=== PATIENT | female | born 1965 | race African-American/Black ===

== ENCOUNTER 2017-05-24 20:17 | Inpatient (IN) | payer BC ==
[2017-05-24] MEDS ORDERED: Morphine INJ* 4 MG/ML 1 ML SYRINGE IV ONE (22:38)
[2017-05-24] MEDS ORDERED: Ondansetron INJ* 2 MG/ML VIAL IV ONE (22:38)
[2017-05-24] MEDS ORDERED: NS 0.9% 1000 ML* 1,000 ML IV ONE (22:38)
[2017-05-24 23:45] LABS: Hematocrit 53 % (35-47); Hemoglobin 17.7 g/dl (12.0-16.0); Mean Corpuscular HGB Conc 33 g/dl (31-36); Mean Corpuscular Hemoglobin 30 pg (27-31); Mean Corpuscular Volume 90 fL (80-97); Mean Platelet Volume 10 um3 (7.4-10.4); Red Blood Count 5.93 10^6/ul (4.0-5.4); Red Cell Distribution Width 13 % (10.5-15); White Blood Count 8.6 10^3/ul (3.5-10.8)
[2017-05-24 23:55] LABS: Albumin 5.1 g/dL (3.2-5.2); BUN/Creatinine Ratio 8.6 (8-20); Calcium 10.8 mg/dL (8.6-10.3); EGFR African American 82.1 (>60); EGFR Non-African American 63.8 (>60); Globulin 3.9 g/dL (2-4); Total Bilirubin 0.8 mg/dL (0.2-1.0)
[2017-05-24 23:57] LABS: Troponin I 0.02 ng/mL (<0.04)
[2017-05-25] MEDS ORDERED: Insulin REGULAR(*) 1 UNITS UNIT IV PUSH ONE
[2017-05-25 00:38] LABS: PCO2 Arterial 17 mmHg (35-45)
[2017-05-25 00:40] LABS: Urine Bacteria Absent (Absent); Urine Bilirubin Negative (Negative); Urine Glucose 3+(>=500 mg/dL) (Negative); Urine Nitrite Negative (Negative)
[2017-05-25] MEDS ORDERED: KCL 20 MEQ/100 ML IVPREMIX* 20 MEQ/100 ML BAG IV ONE ×3 (00:53→05:21)
--- NOTE | 2017-05-25 00:57 | HP ---
H&P (Free Text) History and Physical: PCP: Jordan Mccray MD Date/Time of Evaluation: 05/25/2017 0025 CC: abdominal pain HPI: Mrs Mauricio is a 51YO female HX HTN (negative for DM) presents with onset of abdominal pain gradually worsening to severe Wednesday becoming associated with N/V Wednesday. She denies F/C, chest pain, radiation of pain, SOB, palpitations, light-headedness, cough, congestion, or changes in bowel/bladder. Last BM was Wednesday & described as normal. She claims normal urine output. She denies HX of similar. There was no black or bloody content to her emesis. She drinks minimal alcohol, last consumption ~2 weeks ago. 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; full code status FamHx: Mother passed in her 70s 2nd [place]. Father passed in his 50s 2nd gastric CA. Sister passed in her 40s 2nd breast CA. ROS: as above, otherwise reviewed and all were negative Constitutional: NAD, normally developed, morbidly obese black female vitals: Vital Signs Temp 35.9 C 05/24/17 20:34 Pulse 115 05/25/17 00:34 Resp 24 05/24/17 23:32 BP 151/122 05/25/17 00:34 Pulse Ox 98 05/25/17 00:34 Intake & Output 05/24/17 05/24/17 05/25/17 11:59 23:59 11:59 Intake Total 2 1500 Balance 2 1500 Weight 92.079 kg 92.079 kg Intake: IV Fluids 2 1500 Other: Date of Last Bowel 05/23/2017 Movement Estimated Stool Amount Medium HEENM: atraumatic; sclera/conjunctiva: non-icteric/mildly injected OU; hearing: clinically intact; oropharynx: clear, mucosa moist Neck: soft tissue: non-tender; thyroid: normal Pulmonary: diminished bilaterally, good to fair aeration, no accessory muscle use CV: TR/RR, normal S1S2, no carotid bruit, no jugular venous distention, 2+ B DP/ PT, no edema Abdominal: soft, non-distended, moderately diffusely tender increased to severe in the epigastrum & LUQ, no rebound/guarding/rigidity, hypoactive bowel sounds, no hepatosplenomegaly or masses, no costovertebral angle tenderness Musculoskeletal: general: grossly intact, no palpable tenderness Integumental: normal appearance and texture of exposed skin Psychiatric orientation: AA&O to PPS affect: pain mood: cooperative eye contact: good content: reliable responses: timely insight: fair Testing: Lab Results 05/24/17 05/24/17 05/24/17 Range/Units 23:06 23:06 23:06 WBC 8.6 (3.5-10.8) 10^3/ul RBC 5.93 H (4.0-5.4) 10^6/ul Hgb 17.7 H (12.0-16.0) g/dl Hct 53 H (35-47) % MCV 90 (80-97) fL MCH 30 (27-31) pg MCHC 33 (31-36) g/dl RDW 13 (10.5-15) % Plt Count 213 (150-450) 10^3/ul MPV 10 (7.4-10.4) um3 Neut % (Auto) 77.7 (38-83) % Lymph % (Auto) 13.8 L (25-47) % Hall % (Auto) 7.3 (1-9) % Eos % (Auto) 0.2 (0-6) % Baso % (Auto) 1.0 (0-2) % Absolute Neuts (auto) 6.7 (1.5-7.7) 10^3/ul Absolute Lymphs (auto) 1.2 (1.0-4.8) 10^3/ul Absolute Monos (auto) 0.6 (0-0.8) 10^3/ul Absolute Eos (auto) 0 (0-0.6) 10^3/ul Absolute Basos (auto) 0.1 (0-0.2) 10^3/ul Absolute Nucleated RBC 0.02 10^3/ul Nucleated RBC % 0.2 INR (Anticoag Therapy) 1.13 H (0.89-1.11) APTT 33.0 (26.0-36.3) seconds ABG pH (7.35-7.45) ABG pCO2 (35-45) mmHg ABG pO2 (80-100) mmHg ABG HCO3 (19-31) mmol/L ABG O2 Saturation (95-98) % ABG Base Excess (-2.0-2.0) VBG pH VBG pCO2 (41-51) mmHg VBG pO2 (35-45) mmHg VBG HCO3 (24-28) mmol/L VBG O2 Saturation (70-80) % VBG Base Excess (0-4) Sodium 129 L (133-145) mmol/L Potassium 3.0 L (3.5-5.0) mmol/L Chloride 95 L (101-111) mmol/L Carbon Dioxide 8 L* (22-32) mmol/L Anion Gap 26 H (2-11) mmol/L BUN 8 (6-24) mg/dL Creatinine 0.93 (0.51-0.95) mg/dL Est GFR ( Amer) 82.1 (>60) Est GFR (Non-Af Amer) 63.8 (>60) BUN/Creatinine Ratio 8.6 (8-20) Glucose 500 H (70-100) mg/dL Lactic Acid (0.5-2.0) mmol/L Calcium 10.8 H (8.6-10.3) mg/dL Total Bilirubin 0.80 (0.2-1.0) mg/dL AST 59 H (13-39) U/L ALT 92 H (7-52) U/L Alkaline Phosphatase 75 (34-104) U/L Troponin I 0.02 (<0.04) ng/mL C-Reactive Protein 23.71 H (< 5.00) mg/L Total Protein 9.0 H (6.4-8.9) g/dL Albumin 5.1 (3.2-5.2) g/dL Globulin 3.9 (2-4) g/dL Albumin/Globulin Ratio 1.3 (1-3) Lipase 2320 H (11.0-82.0) U/L Urine Color Urine Appearance Urine pH (5-9) Ur Specific [place] (1.010-1.030) Urine Protein (Negative) Urine Ketones (Negative) Urine Blood (Negative) Urine Nitrate (Negative) Urine Bilirubin (Negative) Urine Urobilinogen (Negative) Ur Leukocyte Esterase (Negative) Urine WBC (Auto) (Absent) Urine RBC (Auto) (Absent) Ur Squamous Epith Cells (Absent) Urine Bacteria (Absent) Hyaline Casts (Absent) Urine Glucose (Negative) 05/25/17 05/25/17 05/25/17 Range/Units 00:15 00:20 00:25 WBC (3.5-10.8) 10^3/ul RBC (4.0-5.4) 10^6/ul Hgb (12.0-16.0) g/dl Hct (35-47) % MCV (80-97) fL MCH (27-31) pg MCHC (31-36) g/dl RDW (10.5-15) % Plt Count (150-450) 10^3/ul MPV (7.4-10.4) um3 Neut % (Auto) (38-83) % Lymph % (Auto) (25-47) % Hall % (Auto) (1-9) % Eos % (Auto) (0-6) % Baso % (Auto) (0-2) % Absolute Neuts (auto) (1.5-7.7) 10^3/ul Absolute Lymphs (auto) (1.0-4.8) 10^3/ul Absolute Monos (auto) (0-0.8) 10^3/ul Absolute Eos (auto) (0-0.6) 10^3/ul Absolute Basos (auto) (0-0.2) 10^3/ul Absolute Nucleated RBC 10^3/ul Nucleated RBC % INR (Anticoag Therapy) (0.89-1.11) APTT (26.0-36.3) seconds ABG pH 7.15 L* (7.35-7.45) ABG pCO2 17 L* (35-45) mmHg ABG pO2 116 H (80-100) mmHg ABG HCO3 8.9 L* (19-31) mmol/L ABG O2 Saturation 98.7 H (95-98) % ABG Base Excess -20.5 L (-2.0-2.0) VBG pH VBG pCO2 (41-51) mmHg VBG pO2 (35-45) mmHg VBG HCO3 (24-28) mmol/L VBG O2 Saturation (70-80) % VBG Base Excess (0-4) Sodium (133-145) mmol/L Potassium (3.5-5.0) mmol/L Chloride (101-111) mmol/L Carbon Dioxide (22-32) mmol/L Anion Gap (2-11) mmol/L BUN (6-24) mg/dL Creatinine (0.51-0.95) mg/dL Est GFR ( Amer) (>60) Est GFR (Non-Af Amer) (>60) BUN/Creatinine Ratio (8-20) Glucose (70-100) mg/dL Lactic Acid 1.4 (0.5-2.0) mmol/L Calcium (8.6-10.3) mg/dL Total Bilirubin (0.2-1.0) mg/dL AST (13-39) U/L ALT (7-52) U/L Alkaline Phosphatase (34-104) U/L Troponin I (<0.04) ng/mL C-Reactive Protein (< 5.00) mg/L Total Protein (6.4-8.9) g/dL Albumin (3.2-5.2) g/dL Globulin (2-4) g/dL Albumin/Globulin Ratio (1-3) Lipase (11.0-82.0) U/L Urine Color Yellow Urine Appearance Clear Urine pH 5.0 (5-9) Ur Specific [place] 1.024 (1.010-1.030) Urine Protein 3+(>=500 mg/dl) H (Negative) Urine Ketones 2+ H (Negative) Urine Blood 1+ H (Negative) Urine Nitrate Negative (Negative) Urine Bilirubin Negative (Negative) Urine Urobilinogen Negative (Negative) Ur Leukocyte Esterase Negative (Negative) Urine WBC (Auto) Trace(0-5/hpf) (Absent) Urine RBC (Auto) 1+(3-5/hpf) H (Absent) Ur Squamous Epith Cells Present H (Absent) Urine Bacteria Absent (Absent) Hyaline Casts Present H (Absent) Urine Glucose 3+(>=500 mg/dl) H (Negative) 05/25/17 05/25/17 Range/Units 01:40 01:55 WBC (3.5-10.8) 10^3/ul RBC (4.0-5.4) 10^6/ul Hgb (12.0-16.0) g/dl Hct (35-47) % MCV (80-97) fL MCH (27-31) pg MCHC (31-36) g/dl RDW (10.5-15) % Plt Count (150-450) 10^3/ul MPV (7.4-10.4) um3 Neut % (Auto) (38-83) % Lymph % (Auto) (25-47) % Hall % (Auto) (1-9) % Eos % (Auto) (0-6) % Baso % (Auto) (0-2) % Absolute Neuts (auto) (1.5-7.7) 10^3/ul Absolute Lymphs (auto) (1.0-4.8) 10^3/ul Absolute Monos (auto) (0-0.8) 10^3/ul Absolute Eos (auto) (0-0.6) 10^3/ul Absolute Basos (auto) (0-0.2) 10^3/ul Absolute Nucleated RBC 10^3/ul Nucleated RBC % INR (Anticoag Therapy) (0.89-1.11) APTT (26.0-36.3) seconds ABG pH (7.35-7.45) ABG pCO2 (35-45) mmHg ABG pO2 (80-100) mmHg ABG HCO3 (19-31) mmol/L ABG O2 Saturation (95-98) % ABG Base Excess (-2.0-2.0) VBG pH Pending VBG pCO2 22 L (41-51) mmHg VBG pO2 76 H (35-45) mmHg VBG HCO3 9.8 L (24-28) mmol/L VBG O2 Saturation 96.3 H (70-80) % VBG Base Excess -19.2 L (0-4) Sodium (133-145) mmol/L Potassium (3.5-5.0) mmol/L Chloride (101-111) mmol/L Carbon Dioxide (22-32) mmol/L Anion Gap (2-11) mmol/L BUN (6-24) mg/dL Creatinine (0.51-0.95) mg/dL Est GFR ( Amer) (>60) Est GFR (Non-Af Amer) (>60) BUN/Creatinine Ratio (8-20) Glucose 429 H (70-100) mg/dL Lactic Acid (0.5-2.0) mmol/L Calcium (8.6-10.3) mg/dL Total Bilirubin (0.2-1.0) mg/dL AST (13-39) U/L ALT (7-52) U/L Alkaline Phosphatase (34-104) U/L Troponin I (<0.04) ng/mL C-Reactive Protein (< 5.00) mg/L Total Protein (6.4-8.9) g/dL Albumin (3.2-5.2) g/dL Globulin (2-4) g/dL Albumin/Globulin Ratio (1-3) Lipase (11.0-82.0) U/L Urine Color Urine Appearance Urine pH (5-9) Ur Specific [place] (1.010-1.030) Urine Protein (Negative) Urine Ketones (Negative) Urine Blood (Negative) Urine Nitrate (Negative) Urine Bilirubin (Negative) Urine Urobilinogen (Negative) Ur Leukocyte Esterase (Negative) Urine WBC (Auto) (Absent) Urine RBC (Auto) (Absent) Ur Squamous Epith Cells (Absent) Urine Bacteria (Absent) Hyaline Casts (Absent) Urine Glucose (Negative) ECG, personally reviewed: sinus tachycardia rate 115, ST depression V3-5 with T- wave inversions diffusely; negative for STEMI; prior ECG shows only T-wave inversions V4-6, I, & II/III/AVF CXR, personally reviewed: no acute process, negative for pleural effusions CT abd/pel W, personally reviewed: IMPRESSION: Multiple nodular masses in the uterine wall demonstrate peripheral enhancement and central attenuation. These likely reflect uterine fibroids; although the appearance is atypical. Correlation with history and pelvic exam is recommended. Pelvic ultrasound may be helpful for further evaluation. Impression: 51F presenting with acute pancreatitis & DKA w/o HX DM DIAGNOSIS & PLAN Primary severe acute pancreatitis : ICU monitoring : aggressive IVFs : pain control : strict NPO : will likely need enteral feeding tube placed via radiology : PICC consult : trend lipase : supportive care DKA : aggressive IVF resuscitation via 5L bolus : 10units regular insulin IV given in ED, start GTT : Q4H BMP & VBGs : Q1H glucometry : 2 runs 20mEq KCl now, add to IVFs once urine output established : check magnesium : add 5% dextrose to IVFs once serum glucose <250 severe dehydration 2nd above : elevated HGB/HCT uterine nodules : likely atypical appearing fibroids : outpatient work up via PCP Secondary HTN : hold anti-hypertensives for now, monitor Admission Rational: inpatient for acute pancreatititis not anticipated to resolve adequately within 48h to allow for discharge DVTp: heparin SQ & SCDs Code Status: full HCP: brother, Uday & sister, Jacquie
[2017-05-25] MEDS ORDERED: Iohexol 300* (CONTRAST) 10 ML SDV IV ONE (01:05)
[2017-05-25] MEDS ORDERED: Nicotine Inhaler* 10 MG AMP INH PRN (01:22)
[2017-05-25] MEDS: NS 0.9% 1000 ML* 2,000 ML IV ONE ×2 (01:22→02:13)
[2017-05-25] MEDS ORDERED: Albuterol 2.5 MG/3 ML NEB.SOL* (0.083%) INH PRN (01:22)
[2017-05-25] MEDS ORDERED: Acetaminophen SUPP* 650 MG SUPP PR PRN (01:26)
[2017-05-25] MEDS ORDERED: NS 0.9% 1000 ML* 1,000 ML IV SCH (01:30)
[2017-05-25] MEDS ORDERED: HYDROmorphone PCA* 20 MG/20 ML PCA.SYRING IVPB SCH (02:00)
[2017-05-25 02:02] LABS: C Reactive Protein 23.71 mg/L (< 5.00)
[2017-05-25] MEDS ORDERED: Mouth Piece, Nicotine* 1 EACH CARTRIDGE INH SCH (02:05)
[2017-05-25 02:10] LABS: Venous Bicarbonate HCO3 9.8 mmol/L (24-28)
[2017-05-25 03:28] LABS: Magnesium 1.9 mg/dL (1.9-2.7)
[2017-05-25] MEDS: NS 0.9% 1000 ML* 1,000 ML IV SCH ×2 (03:52→05:40)
[2017-05-25 04:13] LABS: Venous Bicarbonate HCO3 9.5 mmol/L (24-28)
[2017-05-25 04:38] LABS: BUN/Creatinine Ratio 9.6 (8-20); Blood Urea Nitrogen 7 mg/dL (6-24); Calcium 8.5 mg/dL (8.6-10.3); Chloride 104 mmol/L (101-111); EGFR African American 108.5 (>60); EGFR Non-African American 84.4 (>60); Glucose 274 mg/dL (70-100); Sodium 130 mmol/L (133-145)
[2017-05-25 04:48] LABS: Anion Gap 16 mmol/L (2-11); CO2 Carbon Dioxide 10 mmol/L (22-32)
[2017-05-25] MEDS ORDERED: Dextrose 50% Syringe 50 ML* 25 GM/50 ML SYRINGE IV PUSH ONE (05:00)
[2017-05-25] MEDS ORDERED: Dextrose 50% Syringe 50 ML* 25 GM/50 ML SYRINGE ONE (05:04)
[2017-05-25] MEDS: D5W NS 0.9% 40Meq KCL 1000 ML* 1,000 ML IV SCH ×2 (05:35→10:42)
--- NOTE | 2017-05-25 06:10 | ED ---
Kim Mann Rebecca, scribed for Isauro Ledezma on 05/24/17 at 2234 . Abdominal Pain/Female - HPI Summary HPI Summary: Pt is a 51 y/o F who presents to ED c/o diffuse abdominal pain. Sx began 3 nights ago and worsened yesterday. Pain is described as though it "feels like somebody is punching me." Additionally c/o N/V with episodes of emesis occurring every time she drinks. Denies diarrhea, fever, CP, SOB. Reports that she is not passing gas. PSHx on the abdomen consists of a multiple years ago. - History of Current Complaint Chief Complaint: EDAbdPain Stated Complaint: ABD PAIN Time Seen by Provider: 05/24/17 22:13 Hx Obtained From: Patient Onset/Duration: Lasting Days - 3 days, Still Present, Worse Since - yesterday Severity Currently: Severe Pain Intensity: 10 Pain Scale Used: 0-10 Numeric Location: Diffuse Character: Other: - "like somebody is punching me" Associated Signs and Symptoms: Positive: Nausea, Vomiting. Negative: Fever, Chest Pain, Diarrhea Allergies/Adverse Reactions: Allergies Allergy/AdvReac Type Severity Reaction Status Date / Time No Known Allergies Allergy Verified 05/24/17 20:33 PMH/Surg Hx/FS Hx/Imm Hx Endocrine/Hematology History: Reports: Hx Anemia Cardiovascular History: Reports: Hx Hypertension - Surgical History Surgery Procedure, Year, and Place: Rt shoulder sx, 2008. 2000 Hx Anesthesia Reactions: No Infectious Disease History: No Infectious Disease History: Denies: Traveled Outside the [place] in Last 30 Days - Family History Known Family History: Positive: Cardiac Disease, Diabetes - Social History Alcohol Use: Daily Alcohol Amount: "1 beer" Hx Substance Use: No Substance Use Type: Reports: None Hx Tobacco Use: Yes Smoking Status (MU): Light Every Day Tobacco Smoker Review of Systems Negative: Fever Negative: Chest Pain Negative: Shortness Of Breath Positive: Abdominal Pain - diffuse, Vomiting, Nausea. Negative: Diarrhea All Other Systems Reviewed And Are Negative: Yes Physical Exam - Summary Physical Exam Summary: Appearance: Well appearing, no pain distress Skin: warm, dry, reflects adequate perfusion Head/face: normal Eyes: EOMI, RANJAN ENT: normal Neck: supple, nontender Respiratory: CTA, breath sounds present Cardiovascular: RRR, pulses symmetrical Abdomen: diffuse abdominal tenderness, soft Bowel: present Musculoskeletal: normal, strength/ROM intact Neuro: normal, sensory motor intact, A&Ox3 Triage Information Reviewed: Yes Vital Signs On Initial Exam: Initial Vitals Temp Pulse Resp BP Pulse Ox 96.7 F 120 16 156/119 100 05/24/17 20:34 05/24/17 20:34 05/24/17 20:34 05/24/17 20:34 05/24/17 20:34 Vital Signs Reviewed: Yes Diagnostics - Vital Signs Vital Signs Temp Pulse Resp BP Pulse Ox 05/24/17 20:34 96.7 F 120 16 156/119 100 - Laboratory Result Diagrams: 05/24/17 23:06 05/24/17 23:06 Lab Statement: Any lab studies that have been ordered have been reviewed, and results considered in the medical decision making process. - Radiology CXR Xray Interpretation: No Acute Changes Radiology Interpretation Completed By: ED Physician - CT CT Abd/Pel CT Interpretation: Positive (See Comments) - Multiple nodular masses in the uterine wlal demonstrate peripheral enhancement and central low attenuation. These likely reflect uterine fibroids; although the appearance is atypical. Correlation with history and pelvic exam is recommended. Pelvis ultrasound may be helpful for further evaluation. CT Interpretation Completed By: Radiologist - Ultrasound No standard instances Ultrasound Interpretation: Positive (See Comments) - US Abdomen: Fatty liver. ED physician reviewed radiology report and agrees. Ultrasound Interpretation Completed By: Radiologist - EKG 2241 Cardiac Rate: Tachycardia - 115 bpm EKG Rhythm: Sinus Tachycardia ST Segment: Non-Specific - Non-specific ST changes Abdominal Pain Fem Course/Dx - Course Course Of Treatment: Pt is a 51 y/o F who presents to ED c/o diffuse abdominal pain. Sx began 3 nights ago and worsened yesterday. Pain is described as though it "feels like somebody is punching me." Additionally c/o N/V with episodes of emesis occurring every time she drinks. Denies diarrhea, fever, CP, SOB. Reports that she is not passing gas. PSHx on the abdomen consists of a C- Section multiple years ago. EKG is tachycardic with non-specific ST changes. CXR is negative, as read by ED physician. Abd US reveals fatty liver. CT Abd/ Pel reveals "Multiple nodular masses in the uterine wlal demonstrate peripheral enhancement and central low attenuation. These likely reflect uterine fibroids; although the appearance is atypical. Correlation with history and pelvic exam is recommended. Pelvis ultrasound may be helpful for further evaluation.". Lipase of 2320, potassium of 3.0, CO2 of 8L, ABG pH of 7.15 L, ABG pCO2 of 17L, ABG HCO3 of 8.9L, ABG O2 saturation of 98.7, ABG pO2 of 116 H, anion gap of 26 H. In the ED course, the pt was administered fluid, insulin, morphine, zofran, Zosyn and KCl. Discussed care of pt with Dr. Dangelo who accepts pt for admission. She will be admitted with Dx metabolic acidosis, DKA, pancreatitis, hypokalemia. She understands and agrees. Elevated BP noted and advised to f/u with PCP. - Diagnoses Provider Diagnoses: Metabolic acidosis, Pancreatitis, Hypokalemia, DKA (diabetic ketoacidoses) - Provider Notifications Discussed Care Of Patient With: Aba Dangelo Time Discussed With Above Provider: 00:51 Instructed by Provider To: Other - Accepts pt for admission. - Critical Care Time Critical Care Time: 30-74 min - 30 minutes Discharge - Discharge Plan Condition: Stable Disposition: ADMITTED TO [facility] The documentation as recorded by the Kim rangel Rebecca accurately reflects the service I personally performed and the decisions made by Brisa kenny Emmanuel.
[2017-05-25 06:34] LABS: Hematocrit 40 % (35-47); Hemoglobin 13.2 g/dl (12.0-16.0); Mean Corpuscular HGB Conc 33 g/dl (31-36); Mean Corpuscular Hemoglobin 29 pg (27-31); Mean Corpuscular Volume 88 fL (80-97); Mean Platelet Volume 10 um3 (7.4-10.4); Red Cell Distribution Width 13 % (10.5-15); White Blood Count 6.7 10^3/ul (3.5-10.8)
[2017-05-25 06:47] LABS: Albumin 3.4 g/dL (3.2-5.2); Direct Bilirubin 0.2 mg/dL (0.03-0.18); Globulin 2.6 g/dL (2-4); Indirect Bilirubin 0.3 mg/dL (0.3-1.0); Total Bilirubin 0.5 mg/dL (0.2-1.0)
[2017-05-25 07:18] LABS: HDL Cholesterol 23.1 mg/dL
--- NOTE | 2017-05-25 07:36 | RAD ---
INDICATION: Abdominal pain. COMPARISON: Comparison is made with a prior chest x-ray study from February 02, 2016. TECHNIQUE: A portable view of the chest was obtained. FINDINGS: Cardiac and mediastinal contours appear to be within normal limits. The lungs are clear. No pleural effusion is seen. No free intraperitoneal air is seen. Postsurgical changes are noted in the right shoulder. IMPRESSION: NO EVIDENCE FOR ACUTE DISEASE.
--- NOTE | 2017-05-25 07:43 | RAD ---
HISTORY: Cholecystitis, right upper quadrant pain COMPARISONS: CT dated May 25, 2017 TECHNIQUE: Multiple transverse and longitudinal ultrasound images were obtained of the right upper quadrant of the abdomen using grayscale and color Doppler imaging. FINDINGS: The study is limited by patient body habitus. LIVER: The liver is diffusely echogenic and coarse in echotexture, with decreased acoustic transmission. The liver is enlarged measuring 20 cm in long axis.. There is normal hepatopedal flow of the portal vein on Doppler imaging. BILIARY TREE: There is no intrahepatic or extrahepatic biliary dilatation. The common duct measures 0.3 cm. GALLBLADDER: The gallbladder is well-visualized. There is no cholelithiasis, gallbladder wall thickening, pericholecystic fluid, or sonographic Frazier sign. PANCREAS: The pancreas is obscured by overlying bowel gas. RIGHT KIDNEY: The right kidney is normal in shape, size, contour, and echogenicity. There is no hydronephrosis or nephrolithiasis. The right kidney measures 10.4 x 3.5 x 4.7 cm. AORTA AND IVC: The aorta and IVC are unremarkable. FLUID: There are no pleural effusions. There is no free fluid within the hepatorenal recess. OTHER FINDINGS: None. IMPRESSION: HEPATOMEGALY WITH FATTY INFILTRATION OF THE LIVER
--- NOTE | 2017-05-25 08:11 | RAD ---
INDICATION: Diverticulitis. COMPARISON: Correlation is made with a prior right upper quadrant ultrasound from May 24, 2017. TECHNIQUE: A CT scan of the abdomen and pelvis was performed with intravenous and oral contrast following intravenous injection of 89 ml of Omnipaque 300 nonionic contrast. Contiguous axial sections were obtained from the lung bases through the symphysis pubis. Images were reconstructed in the coronal and sagittal planes. FINDINGS: The lung bases are clear. No pleural effusion is present. The liver is moderately enlarged with decreased attenuation consistent with fatty infiltration. There is more focal decreased density anterior portion of the left hepatic lobe likely representing more focal fatty infiltration. There is some sparing in the anterior aspect of the right hepatic lobe. The spleen is normal in size without focal abnormality. No calcified gallstones are seen. The pancreas appears to be within normal limits. The kidneys and adrenal glands are normal in size. No hydronephrosis is seen. No significant focal renal abnormality is seen. The aorta is normal in caliber with mild calcific plaque present. No significant enlarged retroperitoneal lymph nodes are seen. The stomach, small and large bowel appear nondistended. The appendix is within normal limits. There is no evidence for diverticulitis or colitis. The uterus is enlarged with multiple hypodense peripherally enhancing nodules likely representing leiomyomas although the appearance is somewhat atypical. Recommend clinical correlation and a pelvic ultrasound for further evaluation. No free intraperitoneal air or fluid is seen. No significant focal osseous abnormality is seen. IMPRESSION: 1. NO EVIDENCE FOR ACUTE FINDING OR CAUSE FOR THE PATIENT'S ABDOMINAL PAIN IS SEEN. 2. HEPATOMEGALY AND FATTY INFILTRATION. 3. THE UTERUS IS ENLARGED WITH MULTIPLE HYPODENSE PERIPHERALLY ENHANCING LESIONS LIKELY REPRESENTING FIBROIDS ALTHOUGH ATYPICAL IN APPEARANCE. RECOMMEND CLINICAL CORRELATION AND CORRELATION WITH A PELVIC ULTRASOUND.
--- NOTE | 2017-05-25 08:29 | PN ---
Subjective Date of Service: 05/25/17 Interval History: Feels sleepy. When aroused feels pain is still 8/10, epigastric No nausea. Feels hungry Objective Active Medications: Acetaminophen (Tylenol Supp*) 650 mg [place] Q6H PRN PRN Reason: FEVER/PAIN Albuterol (Ventolin 2.5 Mg/3 Ml Neb.Brooke*) 2.5 mg INH Q2H PRN PRN Reason: SOB/WHEEZING Device (Nicotine Mouth Piece*) 1 each INH .CARTRIDGE JOSTIN Famotidine (Pepcid Iv*) 20 mg IV SLOW PU BID JOSTIN Heparin Sodium (Porcine) (Heparin Vial(*)) 5,000 units SUBCUT Q8HR JOSTIN Sodium Chloride (Ns 0.9% 1000 Ml*) 1,000 mls @ 100 mls/hr IV ED ONCE ONE Stop: 05/25/17 08:37 Last Admin: 05/24/17 23:32 Dose: 100 mls/hr Hydromorphone HCl (Dilaudid Funding Specialist*) 20 mg in 20 mls @ 0 mls/hr IVPB .change Q24H [facility]; As Directed PRN Reason: Protocol Last Admin: 05/25/17 03:42 Dose: 0.2 mls/hr Sodium Chloride (Ns 0.9% 1000 Ml*) 1,000 mls @ 0 mls/hr IV WIDE OPEN [facility] PRN Reason: Wide Open Stop: 05/26/17 01:31 Last Admin: 05/25/17 05:40 Dose: 999 mls/hr Potassium Chloride/Dextrose (D5w Ns 0.9% 40meq Kcl 1000 Ml*) 1,000 mls @ 200 mls/hr IV PER RATE [facility] Last Admin: 05/25/17 05:35 Dose: 200 mls/hr Insulin Human Regular 100 (units/ Sodium Chloride) 100 mls @ 5 mls/hr IV Q20H JOST[facility] PRN Reason: 5 UNITS/HR Last Admin: 05/25/17 06:25 Dose: 5 mls/hr Nicotine (Nicotine Inhaler*) 10 mg INH Q2H PRN PRN Reason: CRAVING Ondansetron HCl (Zofran Inj*) 4 mg IV Q6H PRN PRN Reason: NAUSEA Vital Signs 05/25/17 05/25/17 05/25/17 02:30 02:34 03:00 Temperature Pulse Rate 109 110 Respiratory 12 Rate Blood Pressure 147/101 145/104 (mmHg) O2 Sat by Pulse 100 99 Oximetry 05/25/17 05/25/17 05/25/17 03:23 03:42 03:45 Temperature 97.7 F Pulse Rate 116 111 Respiratory 22 16 Rate Blood Pressure 143/106 156/121 (mmHg) O2 Sat by Pulse 100 99 Oximetry 05/25/17 05/25/17 05/25/17 04:00 04:08 05:00 Temperature 98.2 F Pulse Rate 112 112 104 Respiratory 24 14 11 Rate Blood Pressure 139/108 139/100 124/90 (mmHg) O2 Sat by Pulse 99 99 98 Oximetry 05/25/17 05/25/17 05/25/17 06:00 07:00 07:36 Temperature Pulse Rate 101 103 104 Respiratory 13 11 15 Rate Blood Pressure 111/84 122/96 122/96 (mmHg) O2 Sat by Pulse 98 96 97 Oximetry 05/25/17 08:00 Temperature 97.4 F Pulse Rate 97 Respiratory 18 Rate Blood Pressure 127/81 (mmHg) O2 Sat by Pulse 94 Oximetry Oxygen Devices in Use Now: None Appearance: interactive, NAD Eyes: No Scleral Icterus, PERRLA, - - left eye exotropia Ears/Nose/Mouth/Throat: NL Teeth, Lips, Gums, Clear Oropharnyx, Mucous Membranes Moist Neck: NL Appearance and Movements; NL JVP, Trachea Midline, No Thyroid Enlargement, Masses Respiratory: Symmetrical Chest Expansion and Respiratory Effort, - - b/l end expiratory wheeze Cardiovascular: NL Sounds; No Murmurs; No JVD, RRR Abdominal: - - soft, mild distention, TTP throughout, no rebound/guarding, +bs Lymphatic: No Cervical Adenopathy Extremities: No Edema, No Clubbing, Cyanosis Skin: No Rash or Ulcers Neurological: Alert and Oriented x 3, - - cn2-12 intact, left eye exotropia Result Diagrams: 05/25/17 06:00 05/25/17 05:00 Microbiology and Other Data: Microbiology 05/25/17 02:00 Nasal Screen MRSA (PCR)(CHRISTOPHE) - Final Nasal Mrsa Negative Assess/Plan/Problems-Billing Assessment: 51 yo F p/w abdominal pain found with new dx DM, DKA (AG 26, pH 7.15) and pancreatitis - Patient Problems (1) Pancreatitis Comment: NPO until pain resolves Change PARAFFINER to PRN morphine and adjust as needed c/w D5 NS at 200 with 40KCl. Will adjust glucose and potassium content based on BMPs Gallbladder does not seem to be source. triglycerides wnl Denies EtOH (2) DKA (diabetic ketoacidoses) Comment: Suspect DKA in setting of pancreatitis and undiagnosed DM (HbA1c 12.8) Insulin gtt with D5 NS with 40 Kcl BMP q4hrs FSG q1hr Transition off of insulin gtt will require D5 as patient will remain NPO given pancreatitis (3) Hypertension Comment: hold home medications (4) Uterine fibroid Comment: Will need further evaluation as outpatient Incidental finding Referenced in discharge paperwork (5) Fatty liver Comment: Seen on US Would explain elevated transaminases (6) Tobacco abuse Comment: several cigarettes per day nicotine patch (7) DVT prophylaxis Comment: HSQ
[2017-05-25 08:48] LABS: Venous Bicarbonate HCO3 13.9 mmol/L (24-28)
[2017-05-25] MEDS: Famotidine IV* 10 MG/ML 2 ML (20 mg) IV SLOW PU SCH ×2 (09:27→22:11)
[2017-05-25 10:50] LABS: BUN/Creatinine Ratio 9.4 (8-20); Calcium 8.4 mg/dL (8.6-10.3); EGFR Non-African American 122.1 (>60); Potassium 3.2 mmol/L (3.5-5.0)
[2017-05-25] MEDS ORDERED: NS 0.9% IV SCH ×2 (11:40→15:19)
[2017-05-25] MEDS ORDERED: INSULIN REGULAR IV SCH ×2 (11:40→15:19)
[2017-05-25 12:23] LABS: Venous Bicarbonate HCO3 14.6 mmol/L (24-28)
[2017-05-25 12:53] LABS: BUN/Creatinine Ratio 10.2 (8-20); Calcium 8.5 mg/dL (8.6-10.3); EGFR African American 171.9 (>60); EGFR Non-African American 133.7 (>60); Potassium 3.2 mmol/L (3.5-5.0)
[2017-05-25] MEDS ORDERED: D5W NS 0.9% 40Meq KCL 1000 ML* 1,000 ML IV SCH (15:19)
[2017-05-25 16:53] LABS: Venous Bicarbonate HCO3 15.6 mmol/L (24-28)
[2017-05-25 17:09] LABS: BUN/Creatinine Ratio 8.3 (8-20); Calcium 8.4 mg/dL (8.6-10.3); EGFR African American 176.1 (>60); EGFR Non-African American 136.9 (>60); Potassium 3.4 mmol/L (3.5-5.0)
[2017-05-25] MEDS ORDERED: KCL 10 MEQ/50 ML IVPREMIX* 10 MEQ/50 ML BAG IV ONE (17:25)
[2017-05-25] MEDS ORDERED: Insulin GLARGINE(*) 1 UNITS UNIT SUBCUT SCH (18:00)
[2017-05-26] MEDS: NS 0.9% 1000 ML* 1,000 ML IV SCH ×3 (01:11→11:39)
[2017-05-26] MEDS: Morphine INJ* 4 MG/ML 1 ML SYRINGE IV PRN ×2 (02:28→09:09)
[2017-05-26] MEDS: Heparin VIAL(*) 5000 UNITS/ML VIAL (FIVE THOUSAND) SUBCUT SCH ×3 (06:10→22:32)
[2017-05-26] MEDS ORDERED: Dextrose 50% Syringe 50 ML* 25 GM/50 ML SYRINGE IV PUSH PRN (08:07)
--- NOTE | 2017-05-26 08:12 | PN ---
Subjective Date of Service: 05/26/17 Interval History: Feels abdominal pain is better but still 6/10 Nausea earlier no emesis Hungry and dry mouth Objective Active Medications: Acetaminophen (Tylenol Supp*) 650 mg [place] Q6H PRN PRN Reason: FEVER/PAIN Albuterol (Ventolin 2.5 Mg/3 Ml Neb.Brooke*) 2.5 mg INH Q2H PRN PRN Reason: SOB/WHEEZING Device (Nicotine Mouth Piece*) 1 each INH .CARTRIDGE JOSTIN Dextrose (D50w Syringe 50 Ml*) 12.5 gm IV PUSH .FOR FS < 60 - SS PRN PRN Reason: FS < 60 Famotidine (Pepcid Iv*) 20 mg IV SLOW PU BID [facility] Last Admin: 05/25/17 22:11 Dose: 20 mg Heparin Sodium (Porcine) (Heparin Vial(*)) 5,000 units SUBCUT Q8HR [facility] Last Admin: 05/26/17 06:10 Dose: 5,000 units Sodium Chloride (Ns 0.9% 1000 Ml*) 1,000 mls @ 200 mls/hr IV PER RATE [facility] Insulin Glargine (Lantus(*)) 5 units SUBCUT Q24H [facility] Insulin Glargine (Lantus(*)) 20 units SUBCUT Q24H [facility] Insulin Human Lispro (Humalog*) 0 units SUBCUT ACHS [facility] PRN Reason: Protocol Mometasone Furoate/Formoterol Fumar (Dulera 100/5 Mdi*) 2 puff INH BID JOST[facility] Morphine Sulfate (Morphine Inj (Syringe)*) 4 mg IV Q2H PRN PRN Reason: PAIN Last Admin: 05/26/17 02:28 Dose: 4 mg Nicotine (Nicotine Inhaler*) 10 mg INH Q2H PRN PRN Reason: CRAVING Ondansetron HCl (Zofran Inj*) 4 mg IV Q6H PRN PRN Reason: NAUSEA Vital Signs 05/25/17 05/25/17 05/25/17 09:00 09:01 10:00 Temperature 97.3 F 97.3 F 97.0 F Pulse Rate 99 97 Respiratory 19 15 19 Rate Blood Pressure 96/78 112/96 (mmHg) O2 Sat by Pulse 96 94 Oximetry 05/25/17 05/25/17 05/25/17 10:01 11:00 11:01 Temperature 97.0 F 97.5 F 97.3 F Pulse Rate 98 95 Respiratory 16 23 19 Rate Blood Pressure 122/90 (mmHg) O2 Sat by Pulse 94 96 Oximetry 05/25/17 05/25/17 05/25/17 11:40 12:00 12:51 Temperature 97.9 F Pulse Rate 97 95 Respiratory 22 14 22 Rate Blood Pressure 122/89 (mmHg) O2 Sat by Pulse 99 94 Oximetry 05/25/17 05/25/17 05/25/17 13:00 14:00 14:15 Temperature 97.9 F 98.2 F Pulse Rate 95 93 Respiratory 15 22 14 Rate Blood Pressure 109/89 96/75 (mmHg) O2 Sat by Pulse 99 97 Oximetry 05/25/17 05/25/17 05/25/17 15:00 16:00 17:00 Temperature 98.4 F 98.4 F 98.6 F Pulse Rate 93 91 89 Respiratory 26 17 16 Rate Blood Pressure 101/79 106/77 97/73 (mmHg) O2 Sat by Pulse 97 97 98 Oximetry 05/25/17 05/25/17 05/25/17 18:00 18:16 19:00 Temperature 98.8 F 98.8 F 99.0 F Pulse Rate 91 93 98 Respiratory 19 17 24 Rate Blood Pressure 103/75 112/88 (mmHg) O2 Sat by Pulse 97 98 96 Oximetry 05/25/17 05/25/17 05/25/17 20:00 21:00 22:00 Temperature 99.3 F 99.7 F 99.7 F Pulse Rate 95 92 92 Respiratory 18 22 19 Rate Blood Pressure 109/80 115/77 111/80 (mmHg) O2 Sat by Pulse 96 98 97 Oximetry 05/25/17 05/25/17 05/25/17 23:00 23:01 23:25 Temperature 99.3 F 99.3 F 99.3 F Pulse Rate 90 92 89 Respiratory 18 19 18 Rate Blood Pressure 116/88 (mmHg) O2 Sat by Pulse 97 97 97 Oximetry 05/26/17 05/26/17 05/26/17 00:00 00:01 01:00 Temperature 99.3 F 99.3 F 99.3 F Pulse Rate 97 93 89 Respiratory 16 16 18 Rate Blood Pressure 122/84 103/78 (mmHg) O2 Sat by Pulse 96 98 97 Oximetry 05/26/17 05/26/17 05/26/17 02:00 02:01 02:28 Temperature 99.1 F 99.1 F Pulse Rate 88 88 Respiratory 18 18 18 Rate Blood Pressure 112/82 (mmHg) O2 Sat by Pulse 96 97 Oximetry 05/26/17 05/26/17 05/26/17 03:00 04:00 04:01 Temperature 98.8 F 98.4 F 98.4 F Pulse Rate 92 90 89 Respiratory 16 15 16 Rate Blood Pressure 108/75 114/80 (mmHg) O2 Sat by Pulse 96 96 96 Oximetry 05/26/17 05/26/17 05/26/17 05:00 06:00 06:01 Temperature 98.2 F 98.2 F 98.2 F Pulse Rate 85 84 84 Respiratory 14 15 15 Rate Blood Pressure 103/73 107/84 (mmHg) O2 Sat by Pulse 97 97 97 Oximetry 05/26/17 05/26/17 05/26/17 07:00 07:01 07:43 Temperature 98.1 F 98.1 F 98.8 F Pulse Rate 86 85 Respiratory 15 19 Rate Blood Pressure 123/96 (mmHg) O2 Sat by Pulse 97 97 Oximetry 05/26/17 08:00 Temperature Pulse Rate Respiratory 24 Rate Blood Pressure (mmHg) O2 Sat by Pulse Oximetry Oxygen Devices in Use Now: None Appearance: NAD Eyes: No Scleral Icterus, PERRLA Ears/Nose/Mouth/Throat: Clear Oropharnyx, - - dry mm Neck: NL Appearance and Movements; NL JVP, Trachea Midline Respiratory: Symmetrical Chest Expansion and Respiratory Effort, - - end expiratory wheezes b/l Cardiovascular: NL Sounds; No Murmurs; No JVD, RRR Abdominal: - - soft, TTP diffusely, ND, no rebound/guarding Extremities: No Edema, No Clubbing, Cyanosis Skin: No Rash or Ulcers Neurological: Alert and Oriented x 3 Result Diagrams: 05/25/17 06:00 05/25/17 16:25 Microbiology and Other Data: Microbiology 05/25/17 02:00 Nasal Screen MRSA (PCR)(CHRISTOPHE) - Final Nasal Mrsa Negative Assess/Plan/Problems-Billing Assessment: 51 yo F p/w abdominal pain found with new dx DM, DKA (AG 26, pH 7.15) and pancreatitis - Patient Problems (1) Pancreatitis Comment: NPO until pain resolves c/w PRN morphine and adjust as needed NS at 200 cc/hr triglycerides wnl Denies EtOH (2) DKA (diabetic ketoacidoses) Comment: Suspect DKA in setting of pancreatitis and undiagnosed DM (HbA1c 12.8) Lantus 5 in AM added to 20 in PM. May adjust up evening dose tonight based on SS needs Add low dose SS while NPO FSG q4hrs DM education ordered (3) Hypertension Comment: hold home medications (4) Uterine fibroid Comment: Will need further evaluation as outpatient Incidental finding Referenced in discharge paperwork (5) Fatty liver Comment: Seen on US Would explain elevated transaminases (6) Tobacco abuse Comment: several cigarettes per day nicotine patch (7) COPD (chronic obstructive pulmonary disease) Comment: Presumptive dx based on lung exam and extensive smoking history start low dose dulera. Would continue on discharge discussed with pt (8) DVT prophylaxis Comment: HSQ
[2017-05-26 08:30] LABS: BUN/Creatinine Ratio 8.5 (8-20); Calcium 8.5 mg/dL (8.6-10.3); EGFR African American 180.4 (>60); EGFR Non-African American 140.3 (>60); Potassium 3.1 mmol/L (3.5-5.0)
[2017-05-26] MEDS: Mometasone/Formoter 100/5 MDI INH SCH ×3 (08:48→19:29)
[2017-05-26] MEDS ORDERED: Insulin GLARGINE(*) 1 UNITS UNIT SUBCUT SCH ×2 (09:00→21:00)
[2017-05-26] MEDS: Famotidine IV* 10 MG/ML 2 ML (20 mg) IV SLOW PU SCH ×2 (09:08→22:31)
--- NOTE | 2017-05-26 11:46 | CONSULT ---
Subjective Reason for Visit: Diabetes Education - new diagnosis of type 2 diabetes Admission Date: 05/25/17 Glucose Level On Admission: 500 mg/dl (YowG8W=58.6%) History Of Present Illness: 51 year old woman admitted from the ED with a diagnosis of acute pancreatitis and diabetic ketoacidosis. She was stabilized in the ICU subsequently transferred to medical floor. She has a history of hypertension and iron deficiency anemia but denies having been diagnosed with type 2 diabetes or pre- diabetes in the past. She reports regular medical care and visits with Dr Grajeda at [facility]. She denies recent weight loss , vision changes or fatigue. She came to the ED with acute abdominal pain that had increased over the course of a few days. Prior to that, she reports feeling well. Patient History Surgical History: Yes Surgery Procedure, Year, and Place: Rt shoulder sx, 2008. 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 [employer] Tobacco Use: Yes Exercise: none Objective Allergies Allergy/AdvReac Type Severity Reaction Status Date / Time No Known Allergies Allergy Verified 05/24/17 20:33 Home Medications Medication Instructions Recorded Confirmed Type Hydrochlorothiazide TAB* 25 mg PO DAILY #30 tab 02/04/16 05/25/17 Rx [Hydrodiuril TAB*] amLODIPine TAB* [Norvasc 5 mg TAB*] 5 mg PO DAILY #30 tab 02/04/16 05/25/17 Rx Hospital Medications: Current Medications Acetaminophen (Tylenol Supp*) 650 mg [place] Q6H PRN PRN Reason: FEVER/PAIN Albuterol (Ventolin 2.5 Mg/3 Ml Neb.Brooke*) 2.5 mg INH Q2H PRN PRN Reason: SOB/WHEEZING Device (Nicotine Mouth Piece*) 1 each INH .CARTRIDGE JOSTIN Dextrose (D50w Syringe 50 Ml*) 12.5 gm IV PUSH .FOR FS < 60 - SS PRN PRN Reason: FS < 60 Famotidine (Pepcid Iv*) 20 mg IV SLOW PU BID JOST[facility] Last Admin: 05/26/17 09:08 Dose: 20 mg Heparin Sodium (Porcine) (Heparin Vial(*)) 5,000 units SUBCUT Q8HR [facility] Last Admin: 05/26/17 06:10 Dose: 5,000 units Sodium Chloride (Ns 0.9% 1000 Ml*) 1,000 mls @ 200 mls/hr IV PER RATE [facility] Insulin Glargine (Lantus(*)) 5 units SUBCUT Q24H [facility] Last Admin: 05/26/17 09:08 Dose: 5 units Insulin Glargine (Lantus(*)) 20 units SUBCUT Q24H [facility] Insulin Human Lispro (Humalog*) 0 units SUBCUT ACHS [facility] PRN Reason: Protocol Mometasone Furoate/Formoterol Fumar (Dulera 100/5 Mdi*) 2 puff INH BID [facility] Last Admin: 05/26/17 10:58 Dose: 2 puff Morphine Sulfate (Morphine Inj (Syringe)*) 4 mg IV Q2H PRN PRN Reason: PAIN Last Admin: 05/26/17 09:09 Dose: 4 mg Nicotine (Nicotine Inhaler*) 10 mg INH Q2H PRN PRN Reason: CRAVING Ondansetron HCl (Zofran Inj*) 4 mg IV Q6H PRN PRN Reason: NAUSEA Lab Data: ABG pH 7.15 (7.35-7.45) L* 05/25/17 00:20 ABG HCO3 8.9 mmol/L (19-31) L* 05/25/17 00:20 VBG pH 7.30 (7.33-7.43) L 05/25/17 16:25 Sodium 139 mmol/L (133-145) 05/26/17 07:59 Potassium 3.1 mmol/L (3.5-5.0) L 05/26/17 07:59 BUN 4 mg/dL (6-24) L 05/26/17 07:59 Creatinine 0.47 mg/dL (0.51-0.95) L 05/26/17 07:59 Hemoglobin A1c 12.8 % (Less than 6.0) H 05/24/17 23:06 Calcium 8.5 mg/dL (8.6-10.3) L 05/26/17 07:59 Magnesium 1.9 mg/dL (1.9-2.7) 05/25/17 01:40 AST 37 U/L (13-39) 05/25/17 06:00 ALT 55 U/L (7-52) H 05/25/17 06:00 Triglycerides 119 mg/dL 05/25/17 06:00 Cholesterol 206 mg/dL 05/25/17 06:00 LDL Cholesterol 159 mg/dL 05/25/17 06:00 Vital Signs: Vital Signs 05/26/17 05/26/17 05/26/17 04:00 04:01 05:00 Temperature 98.4 F 98.4 F 98.2 F Pulse Rate 90 89 85 Respiratory 15 16 14 Rate Blood Pressure 114/80 103/73 (mmHg) O2 Sat by Pulse 96 96 97 Oximetry 05/26/17 05/26/17 05/26/17 06:00 06:01 07:00 Temperature 98.2 F 98.2 F 98.1 F Pulse Rate 84 84 86 Respiratory 15 15 15 Rate Blood Pressure 107/84 123/96 (mmHg) O2 Sat by Pulse 97 97 97 Oximetry 05/26/17 05/26/17 05/26/17 07:01 07:43 08:00 Temperature 98.1 F 98.8 F 98.2 F Pulse Rate 85 91 Respiratory 19 17 Rate Blood Pressure 123/93 (mmHg) O2 Sat by Pulse 97 97 Oximetry 05/26/17 05/26/17 05/26/17 08:01 09:00 09:09 Temperature 98.2 F Pulse Rate 88 90 Respiratory 18 10 16 Rate Blood Pressure (mmHg) O2 Sat by Pulse 98 99 Oximetry 05/26/17 05/26/17 05/26/17 09:15 09:57 10:00 Temperature Pulse Rate 88 Respiratory 18 16 9 Rate Blood Pressure 125/89 141/92 (mmHg) O2 Sat by Pulse 99 Oximetry Height: 4 ft 9 in Weight: 188 lb 11.451 oz Body Mass Index (BMI): 40.8 Physical Exam General Appearance: Positive: Alert, Oriented x3, Obese Respiratory: Positive: Non-Labored Plan Of Care Patient's Next Step: Patient to be discharged home when medically stable. She was given a glucometer (Freestyle Lite) with instructions for use. Supplies were faxed to [facility] She was also instructed in use of Insulin Pen in anticipation for discharge on basal insulin. Medication Changes: Recommend starting Metformin on discharge to be titrated to therapeutic dose as tolerated. Will also benefit from basal insulin until she is able to achieve a decrease in HgbA1C. May want to consider GLP-1 receptor agonist to help with weight loss while improving glycemic control. Referral To: [facility] For Further OutPT Diabetic Training, DSME Diagnosis: 1. Type 2 diabetes 2. Obesity - Class III 3. Hypertension Education Prior Diabetic Education: No Education Provided: Blood Glucose Monitoring Handouts Provided: ADA Manage your diabetes Goals Goals: A total of 45 minutes was spent in direct patient counseling, education and coordination of care.
[2017-05-26] MEDS: Insulin LISPRO* 1 UNITS UNIT SUBCUT SCH ×3 (12:15→22:31)
[2017-05-26] MEDS: HYDROmorphone* 1 MG/ML 1 ML SYR IV SLOW PU PRN ×2 (13:39→16:20)
[2017-05-26 13:50] LABS: C-Peptide ng/ml 1.2 ng/mL (1.1 - 4.4)
[2017-05-26] MEDS: KCL 20 MEQ/100 ML IVPREMIX* 20 MEQ/100 ML BAG IV SCH ×2 (18:02→22:03)
[2017-05-26] MEDS: Insulin GLARGINE(*) 1 UNITS UNIT SUBCUT SCH (22:32)
[2017-05-27] MEDS: HYDROmorphone* 1 MG/ML 1 ML SYR IV SLOW PU PRN ×2 (03:35→09:16)
[2017-05-27] MEDS: Heparin VIAL(*) 5000 UNITS/ML VIAL (FIVE THOUSAND) SUBCUT SCH ×3 (05:07→21:41)
[2017-05-27 05:43] LABS: BUN/Creatinine Ratio 9.3 (8-20); Calcium 8.6 mg/dL (8.6-10.3); EGFR African American 199.9 (>60); EGFR Non-African American 155.4 (>60); Potassium 3.1 mmol/L (3.5-5.0)
[2017-05-27 06:39] LABS: Hematocrit 38 % (35-47); Hemoglobin 12.6 g/dl (12.0-16.0); Mean Corpuscular HGB Conc 33 g/dl (31-36); Mean Corpuscular Hemoglobin 30 pg (27-31); Mean Corpuscular Volume 90 fL (80-97); Mean Platelet Volume 10 um3 (7.4-10.4); Red Blood Count 4.25 10^6/ul (4.0-5.4); Red Cell Distribution Width 13 % (10.5-15); White Blood Count 4.5 10^3/ul (3.5-10.8)
[2017-05-27] MEDS: Famotidine IV* 10 MG/ML 2 ML (20 mg) IV SLOW PU SCH ×2 (08:22→21:41)
[2017-05-27] MEDS: Insulin LISPRO* 1 UNITS UNIT SUBCUT SCH ×4 (08:23→21:41)
[2017-05-27] MEDS: NS 0.9% 1000 ML* 1,000 ML IV SCH (08:24)
[2017-05-27] MEDS: Mometasone/Formoter 100/5 MDI INH SCH ×2 (09:23→21:13)
--- NOTE | 2017-05-27 15:49 | PN ---
Subjective Date of Service: 05/27/17 Interval History: Patient seen this morning. Reports some mild pain but feeling hungry. No N/V. Understands new DM diagnosis, also that pancreas was inflamed. Family History: Unchanged from Admission Social History: Unchanged from Admission Past Medical History: Unchanged from Admission Objective Active Medications: Acetaminophen (Tylenol Supp*) 650 mg [place] Q6H PRN PRN Reason: FEVER/PAIN Albuterol (Ventolin 2.5 Mg/3 Ml Neb.Brooke*) 2.5 mg INH Q2H PRN PRN Reason: SOB/WHEEZING Device (Nicotine Mouth Piece*) 1 each INH .[facility] Dextrose (D50w Syringe 50 Ml*) 12.5 gm IV PUSH .FOR FS < 60 - SS PRN PRN Reason: FS < 60 Famotidine (Pepcid Iv*) 20 mg IV SLOW PU BID [facility] Last Admin: 05/27/17 08:22 Dose: 20 mg Heparin Sodium (Porcine) (Heparin Vial(*)) 5,000 units SUBCUT Q8HR [facility] Last Admin: 05/27/17 14:44 Dose: 5,000 units Hydromorphone HCl (Dilaudid Iv*) 1 mg IV SLOW PU Q2H PRN PRN Reason: PAIN Last Admin: 05/27/17 09:16 Dose: 1 mg Lactated Ringer's (Lactated Ringers 1000 Ml Bag*) 1,000 mls @ 100 mls/hr IV PER RATE [facility] Insulin Glargine (Lantus(*)) 35 units SUBCUT Q24H [facility] Last Admin: 05/26/17 22:32 Dose: 35 unit Insulin Human Lispro (Humalog*) 0 units SUBCUT ACHS [facility] PRN Reason: Protocol Last Admin: 05/27/17 12:29 Dose: 1 unit Mometasone Furoate/Formoterol Fumar (Dulera 100/5 Mdi*) 2 puff INH BID [facility] Last Admin: 05/27/17 09:23 Dose: 2 puff Nicotine (Nicotine Inhaler*) 10 mg INH Q2H PRN PRN Reason: CRAVING Ondansetron HCl (Zofran Inj*) 4 mg IV Q6H PRN PRN Reason: NAUSEA Vital Signs 05/26/17 05/26/17 05/26/17 15:53 16:20 17:20 Temperature 97.9 F Pulse Rate 86 Respiratory 18 18 Rate Blood Pressure 133/102 (mmHg) O2 Sat by Pulse 100 Oximetry 05/26/17 05/26/17 05/26/17 19:32 20:00 23:14 Temperature 98.1 F Pulse Rate 97 88 Respiratory 15 18 16 Rate Blood Pressure 118/87 (mmHg) O2 Sat by Pulse 99 100 Oximetry 05/27/17 05/27/17 05/27/17 03:35 04:35 07:24 Temperature 98.0 F 98.3 F Pulse Rate 90 80 Respiratory 15 16 20 Rate Blood Pressure 124/86 118/83 (mmHg) O2 Sat by Pulse 100 100 Oximetry Oxygen Devices in Use Now: None Appearance: Middle-aged, AAF, laying in bed in NAD Eyes: No Scleral Icterus Ears/Nose/Mouth/Throat: - - Dry MM Neck: NL Appearance and Movements; NL JVP Respiratory: Symmetrical Chest Expansion and Respiratory Effort, Clear to Auscultation Cardiovascular: NL Sounds; No Murmurs; No JVD, RRR Abdominal: - - Soft, non-distended, mild TTP in epigastric and RUQ, no rebound/ guarding, BS+ Lymphatic: No Cervical Adenopathy Extremities: No Edema Skin: No Rash or Ulcers Neurological: Alert and Oriented x 3 Result Diagrams: 05/27/17 06:02 05/27/17 05:03 Assess/Plan/Problems-Billing Assessment: 51 yo F p/w abdominal pain found with new dx DM, DKA (AG 26, pH 7.15) and pancreatitis - Patient Problems (1) Pancreatitis Current Visit: Yes Comment: Will trial clear liquids. Decrease IVF (switched to LR) to 100 cc/hr. Continue prn analgesia. Unclear etiology of pancreatitis (2) DKA (diabetic ketoacidoses) Current Visit: Yes Comment: Suspect DKA in setting of pancreatitis and undiagnosed DM (HbA1c 12.8) Continue Lantus 35 units qhs and HISS FSG q4hrs DM education given (3) Hypertension Current Visit: Yes Comment: hold home medications (4) Uterine fibroid Current Visit: Yes Comment: Will need further evaluation as outpatient Incidental finding Referenced in discharge paperwork (5) COPD (chronic obstructive pulmonary disease) Current Visit: Yes Comment: Presumptive dx based on lung exam and extensive smoking history start low dose dulera. Would continue on discharge discussed with pt (6) DVT prophylaxis Current Visit: Yes Comment: HSQ
[2017-05-27] MEDS: Insulin GLARGINE(*) 1 UNITS UNIT SUBCUT SCH (21:51)
[2017-05-28] MEDS: Ondansetron INJ* 2 MG/ML VIAL IV PRN ×3 (01:39→21:37)
[2017-05-28] MEDS: HYDROmorphone* 1 MG/ML 1 ML SYR IV SLOW PU PRN (06:01)
[2017-05-28] MEDS: Heparin VIAL(*) 5000 UNITS/ML VIAL (FIVE THOUSAND) SUBCUT SCH ×3 (06:02→21:38)
[2017-05-28] MEDS: Mometasone/Formoter 100/5 MDI INH SCH ×2 (07:45→20:08)
[2017-05-28] MEDS: Insulin LISPRO* 1 UNITS UNIT SUBCUT SCH ×4 (08:33→21:37)
[2017-05-28] MEDS: Famotidine IV* 10 MG/ML 2 ML (20 mg) IV SLOW PU SCH ×2 (08:36→21:36)
[2017-05-28 12:24] LABS: BUN/Creatinine Ratio 6.1 (8-20); Calcium 8.8 mg/dL (8.6-10.3); EGFR African American 171.9 (>60); EGFR Non-African American 133.7 (>60)
[2017-05-28 12:44] LABS: Potassium 2.6 mmol/L (3.5-5.0)
[2017-05-28] MEDS: amLODIPine TAB* 5 MG PO SCH (12:49)
[2017-05-28] MEDS ORDERED: oxyCODONE TAB* 5 MG TAB PO PRN (12:54)
[2017-05-28] MEDS: Potassium Chlor TAB* 20 MEQ TAB.ER PO SCH ×2 (13:26→16:27)
--- NOTE | 2017-05-28 14:55 | PN ---
Subjective Date of Service: 05/28/17 Interval History: Patient seen this afternoon. Seems to be tolerating clear liquids but still reporting some associated nausea. Pain fairly well controlled has not needed much pain meds. Family History: Unchanged from Admission Social History: Unchanged from Admission Past Medical History: Unchanged from Admission Objective Active Medications: Acetaminophen (Tylenol Supp*) [address] Q6H PRN Albuterol (Ventolin 2.5 Mg/3 Ml Neb.Brooke*) 2.5 mg INH Q2H PRN Amlodipine Besylate (Norvasc Tab*) 5 mg PO DAILY JOST[facility] Device (Nicotine Mouth Piece*) 1 each INH .CARTRIDGE JOSTIN Dextrose (D50w Syringe 50 Ml*) 12.5 gm IV PUSH .FOR FS < 60 - SS PRN Famotidine (Pepcid Iv*) 20 mg IV SLOW PU BID [facility] Heparin Sodium (Porcine) (Heparin Vial(*)) 5,000 units SUBCUT Q8HR [facility] Hydromorphone HCl (Dilaudid Iv*) 1 mg IV SLOW PU Q2H PRN Insulin Glargine (Lantus(*)) 35 units SUBCUT Q24H [facility] Insulin Human Lispro (Humalog*) 0 units SUBCUT ACHS [facility] Mometasone Furoate/Formoterol Fumar (Dulera 100/5 Mdi*) 2 puff INH BID [facility] Nicotine (Nicotine Inhaler*) [address] Ondansetron HCl (Zofran Inj*) 4 mg IV Q6H PRN Oxycodone HCl (Roxycodone Tab*) 5 mg PO Q4H PRN Potassium Chloride (Klor Con Er Tab*) 40 meq PO Q3H [facility] Vital Signs 05/27/17 05/27/17 05/27/17 15:36 19:34 20:00 Temperature 97.9 F 98.5 F Pulse Rate 79 81 Respiratory 21 22 18 Rate Blood Pressure 129/90 143/100 (mmHg) O2 Sat by Pulse 100 100 Oximetry 05/27/17 05/27/17 05/28/17 21:15 23:21 02:26 Temperature 98.9 F 97.9 F Pulse Rate 97 83 85 Respiratory 18 18 18 Rate Blood Pressure 140/84 136/85 (mmHg) O2 Sat by Pulse 99 100 99 Oximetry 05/28/17 05/28/17 05/28/17 06:01 07:01 08:00 Temperature Pulse Rate Respiratory 20 18 16 Rate Blood Pressure (mmHg) O2 Sat by Pulse Oximetry 05/28/17 05/28/17 05/28/17 08:01 11:36 11:39 Temperature 97.9 F Pulse Rate 86 75 Respiratory 22 21 Rate Blood Pressure 106/71 137/104 130/100 (mmHg) O2 Sat by Pulse 99 99 Oximetry Oxygen Devices in Use Now: None Appearance: Middle-aged, AAF, laying in bed in NAD Eyes: No Scleral Icterus Ears/Nose/Mouth/Throat: Mucous Membranes Moist Neck: NL Appearance and Movements; NL JVP Respiratory: Symmetrical Chest Expansion and Respiratory Effort, Clear to Auscultation Cardiovascular: NL Sounds; No Murmurs; No JVD, RRR Abdominal: - - Soft, non-distended, TTP in epigastric area, BS+ Lymphatic: No Cervical Adenopathy Extremities: No Edema Skin: No Rash or Ulcers Neurological: Alert and Oriented x 3 Result Diagrams: 05/27/17 06:02 05/28/17 11:47 Assess/Plan/Problems-Billing Assessment: 51 yo F p/w abdominal pain found with new dx DM, DKA (AG 26, pH 7.15) and pancreatitis - Patient Problems (1) Pancreatitis Current Visit: Yes Comment: Tolerating clears, continue for now, consider advancing to fulls this evening. Stop IVF. Continue prn analgesia, will switch to oral. Unclear etiology of pancreatitis (2) DKA (diabetic ketoacidoses) Current Visit: Yes Comment: Suspect DKA in setting of pancreatitis and undiagnosed DM (HbA1c 12.8) Continue Lantus 35 units qhs and HISS FSG q4hrs DM education given (3) Hypertension Current Visit: Yes Comment: Resume home Amlodipine. Holding HCTZ for now. (4) Uterine fibroid Current Visit: Yes Comment: Will need further evaluation as outpatient Incidental finding Referenced in discharge paperwork (5) COPD (chronic obstructive pulmonary disease) Current Visit: Yes Comment: Presumptive dx based on lung exam and extensive smoking history start low dose dulera. Would continue on discharge discussed with pt (6) DVT prophylaxis Current Visit: Yes Comment: HSQ
[2017-05-28] MEDS: Insulin GLARGINE(*) 1 UNITS UNIT SUBCUT SCH (21:37)
[2017-05-29] MEDS: HYDROmorphone* 1 MG/ML 1 ML SYR IV SLOW PU PRN (03:24)
[2017-05-29] MEDS: Heparin VIAL(*) 5000 UNITS/ML VIAL (FIVE THOUSAND) SUBCUT SCH (05:59)
[2017-05-29 06:09] LABS: BUN/Creatinine Ratio 3.9 (8-20); Calcium 8.6 mg/dL (8.6-10.3); EGFR African American 164.2 (>60); EGFR Non-African American 127.6 (>60); Potassium 3.1 mmol/L (3.5-5.0)
[2017-05-29 07:44] VITALS: BP 105/65
[2017-05-29] MEDS: Famotidine IV* 10 MG/ML 2 ML (20 mg) IV SLOW PU SCH (07:51)
[2017-05-29] MEDS: amLODIPine TAB* 5 MG PO SCH (07:51)
[2017-05-29] MEDS: Insulin LISPRO* 1 UNITS UNIT SUBCUT SCH ×2 (07:55→12:40)
[2017-05-29] MEDS: Mometasone/Formoter 100/5 MDI INH SCH (08:25)
[2017-05-29] MEDS: Potassium Chlor TAB* 20 MEQ TAB.ER PO SCH ×2 (08:50→11:39)
--- NOTE | 2017-05-29 11:08 | DCNOTE ---
Patient seen this morning. Tolerated breakfast with no issues. Still some mild nausea but no emesis. Says pain is not too bothersome. On exam, RRR, s1 and s2 present, no m/g/r, abd soft, obese, mild TTP in epigastric area, no LE edema Feels capable of DM management at home. Instructed to remain on low fat, diabetic diet. F/U with PCP.
--- NOTE | 2017-05-29 18:32 | DS ---
CC: Dr. Mccray * DISCHARGE SUMMARY: DATE OF ADMISSION: 05/24/17 DATE OF DISCHARGE: 05/29/17 PRIMARY CARE PHYSICIAN: Dr. Mccray. PRINCIPAL DISCHARGE DIAGNOSES: 1. Diabetic ketoacidosis. 2. New onset diabetes mellitus type 2. 3. Acute pancreatitis. SECONDARY DIAGNOSES: 1. Hypertension. 2. Iron-deficiency anemia. STUDIES DONE DURING HOSPITALIZATION: CT of abdomen and pelvis with contrast, impression: No evidence for acute findings or cause of the patient's abdominal pain, hepatomegaly and fatty infiltration. The uterus is enlarged and multiple hypodense peripherally enhancing lesions likely representing fibroids, although atypical in appearance. Recommend clinical correlation and correlation with a pelvic ultrasound. Chest x-ray impression: No evidence for acute disease. Gallbladder ultrasound impression: Hepatomegaly with fatty infiltration of the liver. DISCHARGE MEDICATIONS: 1. Lantus 25 units subcutaneous daily. 2. Fluticasone propionate 1 inhaled twice daily. 3. Metformin 750 mg by mouth daily. 4. Hydrochlorothiazide 25 mg by mouth daily. 5. Amlodipine 5 mg by mouth daily. Hydrochlorothiazide discontinued. HISTORY OF PRESENT ILLNESS AND HOSPITAL SUMMARY: Please see the full history and physical by Dr. Aba Dangelo for full details. Briefly, Ms. Mauricio is a 51- year-old female with a past medical history of hypertension, who presented to the hospital with abdominal pain, nausea and vomiting. As noted above, patient's CT scan was somewhat unremarkable; however, she had an elevated lipase of 2320 as well as evidence of DKA with an initial ABG, with a pH of 7.15 and a bicarb of 8.9. The patient was treated with IV fluids as well as an insulin drip. She was kept n.p.o. Her anion gap metabolic acidosis resolved. Over the following day, she was transitioned to a clear liquid diet which she tolerated well and this was slowly advanced to a low fat consistent carb diet. Patient was transitioned to subcutaneous insulin. She was evaluated by Arianna Meier of [facility] for diabetes education. Decision was made to discharge her on Lantus as well as metformin. She will follow up with her PCP as an outpatient for further treatment. On the day of discharge, she was tolerating a low fat diet with no issues and felt confident in administering insulin and monitoring her blood sugars at home. TIME SPENT: Total time spent on this discharge, 40 minutes. This is a summary of the hospitalization. Please see the full medical record for further details. [id number]/[facility] #: [id number] MTDD
== END 2017-05-29 13:10 | disposition home or self-care (01) | DRG 282 ==
LOC: ED 20:17 → ICU 05-25 00:57 → MED 05-26 10:26
PROVIDERS: ADMIT Hospitalist; ATTEND Hospitalist
DX: K85.90 Acute pancreatitis without necrosis or infection, unspecified (principal); E13.10 Other specified diabetes mellitus with ketoacidosis without coma; K76.0 Fatty (change of) liver, not elsewhere classified; I10 Essential (primary) hypertension; F17.210 Nicotine dependence, cigarettes, uncomplicated; D50.9 Iron deficiency anemia, unspecified; Z68.41 Body mass index [BMI] 40.0-44.9, adult; E66.01 Morbid (severe) obesity due to excess calories; E86.0 Dehydration; D25.9 Leiomyoma of uterus, unspecified; E87.6 Hypokalemia; J44.9 Chronic obstructive pulmonary disease, unspecified; Z79.4 Long term (current) use of insulin; Z83.3 Family history of diabetes mellitus; Z72.89 Other problems related to lifestyle; Z82.49 Family history of ischemic heart disease and other diseases of the circulatory system; Z80.3 Family history of malignant neoplasm of breast; Z80.0 Family history of malignant neoplasm of digestive organs
CPT/HCPCS: 36415; 36600; 71010; 74177; 76705; 80048; 80053; 80061; 80076; 81003; 81015; 82803; 82947; 83036; 83605; 83690; 83735; 84484; 84681; 85025; 85610; 85730; 86140; 87641; 93005; 94640; 94760; A9270-GY; J1170; J1644; J2270; J2405; J2543; J3480; Q9967

== ENCOUNTER 2019-04-15 08:41 | Inpatient (IN) | payer BC, OTHER ==
--- NOTE | 2019-04-15 10:37 | ED ---
GI/ HPI - HPI Summary HPI Summary: This patient is a 53 year old F presenting to ED with a chief complaint of diffuse upper abdominal pain since 04/13/19. The CC is described as sharp only when trying to vomit. Patient has not eaten for the past two days. Her last normal bowel movement was on 04/13/19, but she reports normally having a bowel movement daily. The patient rates the pain 9/10 in severity. Symptoms aggravated by nothing. Symptoms alleviated by nothing. Patient reports subjective fever on 04/13/19, fatigue, intermittent headaches, nausea, vomiting on 04/14/19, decreased oral intake, dizziness. Patient denies chest pain, passing gas. PMHx of DM and DKA. - History of Current Complaint Chief Complaint: EDAbdPain Time Seen by Provider: 04/15/19 10:20 Stated Complaint: NOT FEELING WELL PER PT Hx Obtained From: Patient Onset/Duration: Started Days Ago - 04/13/19, Still Present Timing: Intermittent Severity: Severe Current Severity: Severe Pain Intensity: 9 Location of Pain: Diffuse Pain Characteristics: Sharp - Upon vomiting Associated Signs and Symptoms: Positive: Negative - Chest pain, being able to pas selina, Dizziness, Nausea, Vomiting, Fever, Change in Appetite, Abdominal Pain Aggravating Factor(s): Nothing Alleviating Factor(s): Nothing - Additional Pertinent History Primary Care Physician: ANGÉLICA - Allergy/Home Medications Allergies/Adverse Reactions: Allergies Allergy/AdvReac Type Severity Reaction Status Date / Time No Known Allergies Allergy Verified 04/15/19 08:54 PMH/Surg Hx/FS Hx/Imm Hx Endocrine/Hematology History: Reports: Hx Diabetes - Diagnosed 04/2017 with DKA, Hx Anemia - Iron deficiency Cardiovascular History: Reports: Hx Hypertension Respiratory History: Reports: Hx Asthma Denies: Hx Chronic Obstructive Pulmonary Disease (COPD) GI History: Reports: Other GI Disorders - Pancreatitis History: Denies: Hx Dialysis, Hx Renal Disease Sensory History: Denies: Hx Cataracts, Hx Contacts or Glasses, Hx Hearing Aid Opthamlomology History: Denies: Hx Cataracts, Hx Contacts or Glasses - Surgical History Surgery Procedure, Year, and Place: Rt shoulder sx, 2009. 2000 Hx Anesthesia Reactions: No Infectious Disease History: No Infectious Disease History: Denies: Traveled Outside the [place] in Last 30 Days - Family History Known Family History: Positive: Cardiac Disease, Diabetes - Social History Alcohol Use: Daily Alcohol Amount: "1 beer" Hx Substance Use: No Substance Use Type: Reports: None Hx Tobacco Use: Yes Smoking Status (MU): Light Every Day Tobacco Smoker Review of Systems Positive: Fever Negative: Chest Pain Positive: Abdominal Pain, Vomiting, Nausea Neurological: Other - Fatigue, dizziness Positive: Headache All Other Systems Reviewed And Are Negative: Yes Physical Exam - Summary Physical Exam Summary: GENERAL: Patient is a well-developed and nourished F who is lying comfortable in the stretcher. Patient is not in any acute respiratory distress. HEAD AND FACE: Normocephalic EYES: PERRLA, EOMI x 2. EARS: Hearing grossly intact. MOUTH: dry mucous membranes NECK: Supple, trachea is midline, no adenopathy, no JVD, no carotid bruit. CHEST: Symmetric, no tenderness at palpation LUNGS: Clear to auscultation bilaterally. No wheezing or crackles. CVS: Regular rate and rhythm, S1 and S2 present, no murmurs or gallops appreciated. ABDOMEN: diffuse tenderness to palpation, worse to the epigastric region EXTREMITIES: Full ROM in all major joints, no edema, no cyanosis or clubbing. NEURO: Alert and oriented x 3. No acute neurological deficits. Speech is normal and follows commands. SKIN: Dry and warm Triage Information Reviewed: Yes Vital Signs On Initial Exam: Initial Vitals Temp Pulse Resp BP Pulse Ox 97.9 F 125 16 165/131 95 04/15/19 08:49 04/15/19 08:49 04/15/19 08:49 04/15/19 08:49 04/15/19 08:49 Vital Signs Reviewed: Yes Diagnostics - Vital Signs Vital Signs Temp Pulse Resp BP Pulse Ox 04/15/19 09:04 125 146/106 98 04/15/19 09:02 125 98 04/15/19 08:49 97.9 F 125 16 165/131 95 - Laboratory Result Diagrams: 04/16/19 05:05 04/16/19 09:50 Lab Statement: Any lab studies that have been ordered have been reviewed, and results considered in the medical decision making process. - Radiology CXR Radiology Interpretation Completed By: Radiologist Summary of Radiographic Findings: NO ACTIVE CARDIOPULMONARY DISEASE IS NOTED. Dr. Hunter has reviewed this radiology report. - EKG 1031 Cardiac Rate: Tachycardia - 121 BPM EKG Rhythm: Sinus Tachycardia EKG Comparison: No Significant Change - 05/24/2017 Summary of EKG Findings: Sinus tachycardia at 121 BPM with inverted T wave and ST depression in lateral and inferior leads, similar to EKG done 05/24/2017. Re-Evaluation - Re-Evaluation First Eval Re-Evaluation Time: 13:04 Change: Improved Comment: Patient reports feeling better. Discussed results with patient. Patient will be admitted to [facility] with dx of DKA. Patient understands and agrees with this plan. GIGU Course/Dx - Course Course Of Treatment: This patient is a 53 year old F with a history of DM and DKA presenting to ED with a chief complaint of diffuse upper abdominal pain since 04/13/19. EKG at 1031 revealed sinus tachycardia at 121 BPM with inverted T wave and ST depression in lateral and inferior leads, similar to EKG done 05/24. In the ED course, patient received fluids, morphine, Zofran, Insulin, potassium chloride tablet. Blood work obtained, which revealed a CO2 level of 11 mmol/L. CXR revealed NO ACTIVE CARDIOPULMONARY DISEASE IS NOTED. Discussed patient case with Dr. Harkins, hospitalist, who accepted the patient for admission to [facility]. I discussed results with patient. Patient will be admitted to [facility] with dx of DKA. Patient understands and agrees with this plan. - Diagnoses Provider Diagnoses: DKA (diabetic ketoacidoses) - Physician Notifications Discussed Care Of Patient With: Darren Harkins Time Discussed With Above Provider: 13:17 Instructed by Provider To: Admit As Inpatient - Discussed patient case with Dr. Harkins, hospitalist, who accepted the patient for admission to [facility]. - Critical Care Time Critical Care Time: 30-74 min - 30 min Discharge - Sign-Out/Discharge Documenting (check all that apply): Patient Departure - Admit Patient Received Moderate/Deep Sedation with Procedure: No - Discharge Plan Condition: Stable Disposition: HOME - Billing Disposition and Condition Condition: STABLE Disposition: Home - Attestation Statements Document Initiated by Scribe: Yes Documenting Scribe: Kody Montana Provider For Whom Scribe is Documenting (Include Credential): Red Hunter MD Scribe Attestation: IKody, scribed for Red Hunter MD on 04/16/19 at 1046. Scribe Documentation Reviewed: Yes Provider Attestation: The documentation as recorded by the scribe, Kody Montana accurately reflects the service I personally performed and the decisions made by me, Red Hunter MD Status of Scribe Document: Viewed
[2019-04-15] MEDS ORDERED: NS 0.9% 1000 ML** 1,000 ML IV ONE ×4 (10:41→16:10)
[2019-04-15] MEDS ORDERED: Ondansetron INJ* 2 MG/ML VIAL IV ONE (10:41)
[2019-04-15] MEDS ORDERED: Morphine 4 MG/ML VIAL (1 ml) 4 MG/ML VIAL IV ONE (10:41)
[2019-04-15 11:26] LABS: ABS Lymphocytes 0.8 10^3/ul (1.0-4.8); ABS Monocytes 0.9 10^3/ul (0-0.8); ABS Neutrophils 11.3 10^3/ul (1.5-7.7); Eosinophil % 0.3 %; Hematocrit 49 % (35-47); Hemoglobin 16.2 g/dL (12.0-16.0); Lymphocyte % 6.3 %; Mean Corpuscular HGB Conc 33 g/dL (31-36); Mean Corpuscular Hemoglobin 29 pg (27-31); Mean Corpuscular Volume 88 fL (80-97); Mean Platelet Volume 10.7 fL (7.4-10.4); Nucleated Red Blood Cells % 0.1; Platelet Count 241 10^3/uL (150-450); Red Blood Count 5.56 10^6 /uL (3.70-4.87); Red Cell Distribution Width 13 % (10-15); White Blood Count 13.1 10^3/uL (3.5-10.8)
[2019-04-15 11:35] LABS: INR 1.31 (0.82-1.09)
[2019-04-15 11:37] LABS: ALT 27 U/L (7-52); AST 17 U/L (13-39); Albumin 4.4 g/dL (3.2-5.2); Alkaline Phosphatase 86 U/L (34-104); BUN/Creatinine Ratio 9.3 (8-20); Blood Urea Nitrogen 7 mg/dL (6-24); Calcium 10.5 mg/dL (8.6-10.3); Chloride 102 mmol/L (101-111); EGFR African American 98.2 (>60); EGFR Non-African American 81.1 (>60); Globulin 4.2 g/dL (2-4); Glucose 442 mg/dL (70-100); Magnesium 1.7 mg/dL (1.9-2.7); Potassium 3.4 mmol/L (3.5-5.0); Sodium 134 mmol/L (135-145); Total Protein 8.6 g/dL (6.4-8.9)
[2019-04-15 11:42] LABS: Anion Gap 21 mmol/L (2-11); CO2 Carbon Dioxide 11 mmol/L (22-32); Troponin I 0.05 ng/mL (<0.04)
[2019-04-15] MEDS ORDERED: Insulin IVPB 100 units/100 ml 100 UNITS/100 ML UNIT IV SCH (12:00)
[2019-04-15] MEDS ORDERED: Potassium Chlor TAB* 20 MEQ TAB.ER PO ONE ×2 (12:13→20:30)
[2019-04-15] MEDS ORDERED: Iodixanol* (CONTRAST) 320 MG/ML 100 ML SDV IV ONE (13:06)
[2019-04-15] MEDS ORDERED: Ondansetron INJ* 2 MG/ML VIAL IV PRN (13:42)
[2019-04-15 13:54] LABS: Urine Appearance Cloudy; Urine Bacteria Absent (Absent); Urine Bilirubin Negative (Negative); Urine Blood 1+ (Negative); Urine Color Yellow; Urine Glucose 3+(>=500 mg/dL) (Negative); Urine Ketones 2+ (Negative); Urine Nitrite Negative (Negative); Urine Protein 2+(100 mg/dL) (Negative); Urine Red Blood Cell 3+(>10/hpf) (Absent); Urine Specific Gravity 1.023 (1.010-1.030); Urine Squamous Epithelial Cell Present (Absent); Urine Urobilinogen Negative (Negative); Urine White Blood Cell 2+(11-20/hpf) (Absent)
[2019-04-15] MEDS ORDERED: 1/2 NS IVPB SCH ×2 (15:00)
[2019-04-15] MEDS ORDERED: D5W IVPB SCH ×2 (15:00)
[2019-04-15] MEDS ORDERED: POTASSIUM CHLORIDE TPN IVPB SCH ×2 (15:00)
[2019-04-15 15:39] LABS: BUN/Creatinine Ratio 8.9 (8-20); Blood Urea Nitrogen 5 mg/dL (6-24); CO2 Carbon Dioxide 18 mmol/L (22-32); Calcium 8.9 mg/dL (8.6-10.3); Chloride 110 mmol/L (101-111); EGFR African American 137.6 (>60); EGFR Non-African American 113.7 (>60); Glucose 116 mg/dL (70-100); Sodium 137 mmol/L (135-145)
[2019-04-15 15:40] LABS: Anion Gap 9 mmol/L (2-11)
[2019-04-15] MEDS: Heparin VIAL(*) 5000 UNITS/ML VIAL (FIVE THOUSAND) SUBCUT SCH ×2 (15:46→21:20)
--- NOTE | 2019-04-15 17:34 | HP ---
ADMISSION HISTORY AND PHYSICAL: DATE OF ADMISSION: 04/15/19 PRIMARY CARE PROVIDER: None, although last saw Dr. Mccray a year prior. HEALTHCARE PROXY: Her sister, Jacquie. CODE STATUS: Full. SOURCE OF INFORMATION: History obtained from interview with the patient and review of records. Reliability of the patient is fair. CHIEF COMPLAINT: I was not feeling good. HISTORY OF PRESENT ILLNESS: This is a 53-year-old female with past medical history of type 2 diabetes, complicated by DKA in 2017, and hypertension, who was in her usual state of health 2 days prior to presentation, when she started noticing decreased energy as well as nausea. She noted midline "esophageal pain ," associated with fever x1, described as feeling hot, but no rigors or sweating. She noted no polydipsia or polyuria, no dysuria or hesitancy. She has had no constipation or diarrhea. She did note soreness in her chest since , which is new. It does not change with exertion, not associated with lightheadedness or dizziness. No cough or sore throat, although she does feel like her skin is dry. She notes that she was on insulin 2 years prior at the time of her DKA and she notes it was stopped 2 years prior by her primary care provider because "her sugar was good." Emergency course is notable for hyperglycemia as well as a metabolic acidosis. Hospitalist service was consulted for admission. PAST MEDICAL HISTORY: Includes hypertension, type 2 diabetes, complicated by DKA in 2017, history of iron-deficiency anemia, pancreatitis, right rotator cuff repair, and x1. MEDICATIONS: The patient reports she takes 2 medications for blood pressure that she receives from [facility], cannot indicate their names. Currently nothing for diabetes. ALLERGIES: No known drug allergies. FAMILY HISTORY: Notable for mother from an MS in her 70s and father with gastric cancer. Sister with breast cancer. SOCIAL HISTORY: She smokes about a pack per week for about 30 years, drinks about 2 beers per week, smokes occasional marijuana, otherwise no other illicits. REVIEW OF SYSTEMS: As per HPI, otherwise all other systems are negative. PHYSICAL EXAMINATION GENERAL: Sitting up in bed, interactive, pleasant, in no apparent distress. VITAL SIGNS: In the emergency room, notable for blood pressure 145/100, respiratory rate of 17, she is 99% on room air, T-max 97.9, heart rate tachycardic at 109 beats per minute when seen by this author. HEENT: Oropharynx is clear. She has moist mucous membranes. Sclerae are anicteric. She does not have elevated JVD. No supraclavicular or cervical lymphadenopathy. LUNGS: Clear, except for mild end expiratory wheezes. HEART: Regular and tachycardic. No murmurs, rubs or gallops. ABDOMEN: Soft, although does have tenderness to palpation just below her xiphoid process, as well as tenderness over her sternum. Abdomen is without rebound or guarding, positive bowel sounds in 4 quadrants. Extremities are warm and well perfused. No clubbing, cyanosis or edema. Less than 2 seconds cap refill. She is alert and oriented x3. NEUROLOGIC: Cranial nerves II through XII are intact. She does have bilateral exotropia. DIAGNOSTIC STUDIES/LAB DATA: Labs reviewed, her arterial pH was 7.28 after initiation of insulin, partial pressure CO2 of 24 and oxygen 98. White blood cell count is 13.1, hemoglobin 16.2, platelets 241. INR is 1.3. On presentation sodium 134, potassium 3.4, chloride 102, bicarb 11, anion GAP is 21 , BUN 7, creatinine 0.75, presenting glucose 442, lactic acid 1.1, calcium 10.5 , magnesium 1.7. Troponin I is 0.05, declining to 0.03. Lipase is less than 10. Urine is notable for protein, ketones, blood, trace leukocyte esterase, white blood cells, squamous epithelial cells, and glucose, but no bacteria. Data reviewed: Chest x-ray, impression: No active cardiopulmonary disease on this author's interpretation. CT abdomen and pelvis: Hepatic steatosis, no abnormal masses or fluid collections are noted, likely myomatous change of the uterus, which are stable since previous exam. EKG: Sinus tachycardia and normal axis. Normal R-wave progression. T-wave inversions in V3, V4, V5, V6, II and aVF. T-wave flattening in I, III, V2, and V3, not new since 2017. ASSESSMENT AND PLAN: This is a 53 year old female with past medical history of type 2 diabetes, previously on insulin, now on no medication, presenting with hyperglycemia and metabolic acidosis, suspect in the setting of diabetic ketoacidosis. 1. Diabetic ketoacidosis: Suspect in the setting of being off all medication. I detect no underlying infection that triggered this current acidosis. However, I will follow urine for culture, BMP q.4 hours, next is in 1 hour, fingersticks q.1 hour, insulin drip has been started in the emergency room, fingerstick at the completion of my exam was 196. We will start D5 half normal with 20 mEq potassium at 150 cc per hour. In addition to the 2 L normal saline bolus, follow VBG with BMP q.4 hours, check hemoglobin A1c. Monitor in the ICU. 2. Abdominal Pain: Suspected in the setting of diabetic ketoacidosis. 3. Chest Discomfort: Troponin peaked at 0.05, now downtrending. Suspect in the setting of type 2 demand from diabetic ketoacidosis. In regards to the chest pain, she is tender to palpation in the precordium, decreasing the likelihood that this presentation is in the setting of myocardial ischemia. 4. Dehydration: I suspect this is responsible for leukocytosis, hemoconcentration, as well as hypercalcemia, all in the setting of diabetic ketoacidosis. Fluids as above, monitoring urine output. 5. Hypertension: Unknown home medications. We will need med rec with [facility] ; however, holding currently in the setting of diabetic ketoacidosis. 6. DVT prophylaxis: Heparin subcu. [id number]/[facility] #: [id number] AUGUSTO
[2019-04-15] MEDS ORDERED: Dextrose 50% Syringe 50 ML* 25 GM/50 ML SYRINGE IV PUSH PRN (17:55)
[2019-04-15] MEDS ORDERED: Insulin GLARGINE(*) 1 UNITS UNIT SUBCUT SCH (18:00)
[2019-04-15 18:15] LABS: Potassium Redraw 3.4 mmol/L (3.5-5.0)
[2019-04-15 19:25] LABS: BUN/Creatinine Ratio 9.3 (8-20); Calcium 8.5 mg/dL (8.6-10.3); EGFR African American 143.5 (>60); EGFR Non-African American 118.6 (>60); Potassium 3.4 mmol/L (3.5-5.0)
[2019-04-15] MEDS: Insulin LISPRO* 1 UNITS UNIT SUBCUT SCH (21:20)
[2019-04-15] MEDS ORDERED: Metoprolol Tartrate TAB* 25 MG ONE (22:00)
[2019-04-15] MEDS ORDERED: NS 0.9% 1000 ML/HR X 1 BAG (TOTAL 1000 ML) IV SCH (22:30)
[2019-04-16 00:20] LABS: BUN/Creatinine Ratio 8.9 (8-20); Calcium 8.5 mg/dL (8.6-10.3); EGFR Non-African American 146.3 (>60); Potassium 3.4 mmol/L (3.5-5.0)
[2019-04-16] MEDS ORDERED: Insulin GLARGINE(*) 1 UNITS UNIT SUBCUT ONE (01:15)
[2019-04-16] MEDS ORDERED: Potassium Chlor TAB* 20 MEQ TAB.ER PO ONE (01:15)
[2019-04-16] MEDS ORDERED: D5W 1/2 NS KCl 20 Meq 1000 ML* 1,000 ML IV SCH (01:15)
[2019-04-16 05:35] LABS: ABS Basophils 0.1 10^3/ul (0-0.2); ABS Eosinophils 0.1 10^3/ul (0-0.6); ABS Lymphocytes 1.2 10^3/ul (1.0-4.8); ABS Monocytes 0.6 10^3/ul (0-0.8); ABS Neutrophils 6.6 10^3/ul (1.5-7.7); Eosinophil % 1.1 %; Hematocrit 39 % (35-47); Hemoglobin 12.9 g/dL (12.0-16.0); Lymphocyte % 14.2 %; Mean Corpuscular HGB Conc 33 g/dL (31-36); Mean Corpuscular Hemoglobin 29 pg (27-31); Mean Corpuscular Volume 86 fL (80-97); Mean Platelet Volume 9.8 fL (7.4-10.4); Nucleated Red Blood Cells % 0.1; Platelet Count 198 10^3/uL (150-450); Red Blood Count 4.49 10^6 /uL (3.70-4.87); Red Cell Distribution Width 13 % (10-15); White Blood Count 8.5 10^3/uL (3.5-10.8)
[2019-04-16 06:05] LABS: BUN/Creatinine Ratio 7.3 (8-20); Calcium 8.7 mg/dL (8.6-10.3); EGFR African American 197.1 (>60); EGFR Non-African American 162.9 (>60); Potassium 3.5 mmol/L (3.5-5.0)
[2019-04-16] MEDS: Heparin VIAL(*) 5000 UNITS/ML VIAL (FIVE THOUSAND) SUBCUT SCH ×3 (06:14→21:21)
[2019-04-16] MEDS ORDERED: NS 0.9% w/ 20 Meq KCL 1000 ML* 1,000 ML IV SCH (08:00)
[2019-04-16 10:17] LABS: BUN/Creatinine Ratio 5.8 (8-20); EGFR African American 149.8 (>60); EGFR Non-African American 123.8 (>60); Potassium 4.1 mmol/L (3.5-5.0)
[2019-04-16] MEDS: Insulin LISPRO* 1 UNITS UNIT SUBCUT SCH ×4 (10:29→21:20)
[2019-04-16] MEDS: Metoprolol Tartrate TAB* 25 MG PO SCH ×2 (10:36→21:13)
--- NOTE | 2019-04-16 17:43 | PN ---
Subjective Date of Service: 04/16/19 Interval History: Insulin gtt restarted overnight after gap opened This AM insulin gtt off again Abdominal pain resolved She still has some tenderness in precordial region No SOB, N/V LH Objective Active Medications: Dextrose (D50w Syringe 50 Ml*) 12.5 gm IV PUSH .FOR FS < 60 - SS PRN PRN Reason: FS < 60 Heparin Sodium (Porcine) (Heparin Vial(*)) 5,000 units SUBCUT Q8HR JOSTIN Last Admin: 04/16/19 14:49 Dose: 5,000 units Insulin Glargine (Lantus(*)) 30 units SUBCUT Q24H JOSTIN Insulin Human Lispro (Humalog*) 0 units SUBCUT ACHS JOSTIN; Protocol Last Admin: 04/16/19 13:21 Dose: 6 unit Metoprolol Tartrate (Lopressor Tab*) 25 mg PO BID JOSTIN Last Admin: 04/16/19 10:36 Dose: 25 mg Ondansetron HCl (Zofran Inj*) 4 mg IV Q4H PRN PRN Reason: NAUSEA/VOMITING Last Admin: 04/15/19 23:07 Dose: 4 mg Vital Signs - 8 hr 04/16/19 04/16/19 04/16/19 09:48 09:49 10:00 Temperature Pulse Rate Respiratory 22 18 18 Rate Blood Pressure 103/81 113/77 (mmHg) O2 Sat by Pulse Oximetry 04/16/19 04/16/19 04/16/19 11:00 11:01 11:47 Temperature 97.7 F Pulse Rate Respiratory 21 21 Rate Blood Pressure (mmHg) O2 Sat by Pulse Oximetry 04/16/19 04/16/19 15:30 15:32 Temperature 97.7 F Pulse Rate 85 Respiratory 18 18 Rate Blood Pressure 121/81 (mmHg) O2 Sat by Pulse 100 Oximetry Oxygen Devices in Use Now: None Appearance: NAD,obese Eyes: No Scleral Icterus, PERRLA Ears/Nose/Mouth/Throat: NL Teeth, Lips, Gums, Clear Oropharnyx Neck: NL Appearance and Movements; NL JVP Respiratory: Symmetrical Chest Expansion and Respiratory Effort, Clear to Auscultation Cardiovascular: NL Sounds; No Murmurs; No JVD, RRR, - - tenderness over sternum Abdominal: NL Sounds; No Tenderness; No Distention, No Hepatosplenomegaly Lymphatic: No Cervical Adenopathy Extremities: No Edema Skin: No Rash or Ulcers Neurological: Alert and Oriented x 3 Result Diagrams: 04/16/19 05:05 04/16/19 09:50 Microbiology and Other Data: Microbiology 04/15/19 13:38 Urine Culture - Final Urine 04/15/19 10:45 Aerobic Blood Culture - Preliminary Blood Venous No Growth Day 1 Anaerobic Blood Culture - Preliminary No Growth Day 1 04/15/19 10:50 Aerobic Blood Culture - Preliminary Blood Venous No Growth Day 1 Anaerobic Blood Culture - Preliminary No Growth Day 1 04/15/19 15:15 Nasal Screen MRSA (PCR) - Final Nasal Mrsa Not Detected Assess/Plan/Problems-Billing Assessment: 53 yo F h/o DM2 last admit with DKA 2016 reportedly off medication for diabetes since 2017 - Patient Problems (1) DKA (diabetic ketoacidoses) Comment: insulin off since last night 30 units lantus tonight lispro SS many benefit from endo c/s (was not placed yet) SW consult placed Never administered short acting insulin to herself (2) Hypertension Comment: started on metoprolol overnight Called pharmacy - she transferred her meds to [facility] and picked up 1 time in December this year Only meds were HCTZ 25 and norvasc 10 (3) DVT prophylaxis Comment: [facility]
[2019-04-16] MEDS ORDERED: Insulin GLARGINE(*) 1 UNITS UNIT SUBCUT SCH (21:00)
[2019-04-17] MEDS: Heparin VIAL(*) 5000 UNITS/ML VIAL (FIVE THOUSAND) SUBCUT SCH ×2 (05:37→14:12)
[2019-04-17 06:01] LABS: Potassium 3.5 mmol/L (3.5-5.0)
[2019-04-17 06:06] LABS: BUN/Creatinine Ratio 9.6 (8-20); EGFR African American 149.8 (>60); EGFR Non-African American 123.8 (>60)
[2019-04-17] MEDS ORDERED: Potassium Chlor TAB* 10 MEQ TAB.ER PO ONE (07:32)
[2019-04-17] MEDS ORDERED: metFORMIN* 500 MG TAB PO SCH (08:00)
[2019-04-17] MEDS: Insulin LISPRO* 1 UNITS UNIT SUBCUT SCH ×2 (08:45→13:00)
[2019-04-17] MEDS: Metoprolol Tartrate TAB* 25 MG PO SCH (08:45)
[2019-04-17 11:35] VITALS: BP 120/84
--- NOTE | 2019-04-18 01:01 | DS ---
DISCHARGE SUMMARY: DATE OF ADMISSION: 04/15/19 DATE OF DISCHARGE: 04/17/19 PRIMARY CARE PHYSICIAN: None. PRIMARY DIAGNOSES: 1. Diabetic ketoacidosis. 2. Uncontrolled diabetes. SECONDARY DIAGNOSES: 1. Hypertension. 2. Iron deficiency anemia. DISCHARGE MEDICATIONS: 1. Insulin glargine pen 30 units daily. 2. Metformin 1000 mg twice a day. 3. Lisinopril 10 mg at bedtime. HISTORY OF PRESENT ILLNESS: Ms. López is a 53-year-old woman with type 2 diabetes complicated by DKA in 2017, and hypertension, who was in her usual state of health until 2 days prior to admission when she began to notice decreased energy associated with nausea. She noted a midline esophageal spasm associated with 1-day of subjective fevers without rigors or diaphoresis. She denied polydipsia, polyuria, dysuria, or hesitancy. She denied constipation or diarrhea. She did note a new soreness in her chest was nonexertional and not associated with lightheadedness or dizziness. She denied cough or sore throat. She states that she had been on insulin 2 years ago when she had previously had DKA and states it was then stopped by her primary care provider because " her sugar was good." HOSPITAL COURSE: In the emergency room, she was noted to have a metabolic acidosis with hyperglycemia and urinary ketones. She was started on an insulin drip and admitted to the ICU. Her anion gap quickly normalized by the end of day of admission. By her second day of hospitalization, she reported a resolution in her abdominal pain and was initiated on 30 units of subcutaneous glargine with a lispro sliding scale. By day of discharge, the patient had denied 10-point review of systems. She reports that she had not ever used short -acting insulin at home; however, given that she has not been on oral medications, decision was made not to continue short-acting insulin, but to continue her on glargine as well as initiation of metformin. Nursing team and physician provided extensive education to the patient on using insulin pen, adhering to medications including her metformin and lisinopril and discussed the importance of maintaining a home glucose log, which she can bring to her primary care and endocrinology appointments after discharge. She was also encouraged to have healthy diet, exercise, and lose weight for continued glycemic control. PHYSICAL EXAM: In general, she is a well-appearing woman, in no acute distress. Alert and interactive. HEENT: Moist mucous membranes. OP clear. Neck: No JVD. Heart: Regular rate and rhythm. No murmurs, gallops, or rubs. Lungs: Clear to auscultation bilaterally. Abdomen: Soft, nontender, nondistended. Extremities: Warm and well perfused without edema. Skin: Warm and dry. Neurologic: A and O x3. PERTINENT STUDIES AND LABS: Troponin 0.05, down trended to normal without intervention. Hemoglobin A1c 13.9. UA without bacteria, but with glucose, ketones, and protein. Hemoglobin normal with normal MCV. Chest x-ray without active cardiopulmonary disease. Abdominal/pelvis CT with hepatic steatosis without abnormal masses or fluid collections noted, likely myomatous change of the uterus, which is stable since previous exam. DISCHARGE PLAN: The patient is to establish care in the [facility] and the [facility]. She was also referred to tools administrator, Dr. Zohaib Matthews for continued uncontrolled diabetes management. She is to continue medications listed above, which include long- acting insulin and metformin for glycemic control as well as lisinopril for her history of high blood pressure and her likely kidney disease given protein seen on UA. Eventually, her primary care physician or tools administrator can also start her on statin medication, which is indicated in this 53-year-old woman with diabetes. She was educated on the importance of following up with Ophthalmology and Podiatry as well, which she will be referred to by her primary care physician. She was extensively educated on return precautions which include, but are not limited to recurrence of presenting symptoms including abdominal pain or new symptoms of polyuria and polydipsia, fever, or other signs of infection. She should eat a healthy diet that is low in processed foods and low in carbohydrates and maintain activity level as tolerated with goal of weight loss. DISPOSITION: Home. CONDITION: Improved. TIME SPENT: Approximately 60 minutes was spent on discharge of this patient, more than half of which was spent with care coordination at bedside for interview and exam. [id number]/[facility] #: [id number] MTDD
== END 2019-04-17 15:00 | disposition home or self-care (01) | DRG 420 ==
LOC: ED 08:41 → ICU 13:42 → SSU 04-16 15:24
PROVIDERS: ADMIT Internal Medicine; ATTEND Internal Medicine
DX: E11.10 Type 2 diabetes mellitus with ketoacidosis without coma (principal); Z68.41 Body mass index [BMI] 40.0-44.9, adult; I10 Essential (primary) hypertension; D50.9 Iron deficiency anemia, unspecified; K76.0 Fatty (change of) liver, not elsewhere classified; F17.210 Nicotine dependence, cigarettes, uncomplicated; E86.0 Dehydration; E83.52 Hypercalcemia; D72.829 Elevated white blood cell count, unspecified; R07.89 Other chest pain; J45.909 Unspecified asthma, uncomplicated; E66.9 Obesity, unspecified; Z79.4 Long term (current) use of insulin; Z82.49 Family history of ischemic heart disease and other diseases of the circulatory system; Z80.0 Family history of malignant neoplasm of digestive organs; Z80.3 Family history of malignant neoplasm of breast; Z72.89 Other problems related to lifestyle; Z83.3 Family history of diabetes mellitus
CPT/HCPCS: 36415; 71045; 74177; 80048; 80053; 81003; 81015; 82803; 83036; 83605; 83690; 83735; 84484; 85025; 85610; 85730; 87040; 87086; 87641; 93005; 99284; A9270-GY; J1644; J1815; J2270; J2405; Q9967

== ENCOUNTER 2022-05-27 07:43 | Inpatient (IN) ==
[2022-05-27] MEDS ORDERED: Metoclopramide 5 MG/ML VIAL (10 mg) IV ONE ×2 (08:51→09:15)
[2022-05-27] MEDS ORDERED: SUMAtriptan Subcut 6 MG/0.5 ML VIAL SUBCUT ONE (09:14)
[2022-05-27 09:15] LABS: ABS Lymphocytes 0.7 10^3/ul (1.0-4.8); ABS Monocytes 0.3 10^3/ul (0-0.8); ABS Neutrophils 4.7 10^3/ul (1.5-7.7); Eosinophil % 0.2 %; Hematocrit 39 % (35-47); Hemoglobin 12.7 g/dL (12.0-16.0); Lymphocyte % 11.5 %; Mean Corpuscular HGB Conc 32 g/dL (31-36); Mean Corpuscular Hemoglobin 27 pg (27-31); Mean Corpuscular Volume 85 fL (80-97); Mean Platelet Volume 7.8 fL (7.4-10.4); Nucleated Red Blood Cells % 0.1; Platelet Count 314 10^3/uL (150-450); Red Blood Count 4.63 10^6 /uL (3.70-4.87); Red Cell Distribution Width 15 % (10-15); White Blood Count 5.8 10^3/uL (3.5-10.8)
[2022-05-27 10:04] LABS: Albumin 4.1 g/dL (3.2-5.2); Albumin/Globulin Ratio 0.9 (1-3); CRP High Sensitivity 29.15 mg/L (<2.00); Calcium 9.7 mg/dL (8.6-10.3); Globulin 4.5 g/dL (2-4); Potassium 3.7 mmol/L (3.5-5.0); Total Bilirubin 0.4 mg/dL (0.2-1.0); Total Protein 8.6 g/dL (6.4-8.9); eGFR CKD-EPI 108.7 (>60)
[2022-05-27] MEDS ORDERED: hydrALAZINE 20 mg/ml 1 ML Vial IV IV SLOW PU ONE (10:20)
[2022-05-27] MEDS ORDERED: Iodixanol (CONTRAST) 320 MG/ML 100 ML SDV IV ONE ×2 (10:33→14:25)
[2022-05-27 11:03] LABS: Erythrocyte Sed Rate 74 mm/Hr (0-29)
[2022-05-27] MEDS ORDERED: Metoprolol Tartrate 5 mg VIAL 5 ml VIAL (1 mg/ml) IV ONE (12:12)
[2022-05-27] MEDS ORDERED: Metoprolol Tartrate 5 mg VIAL 5 ml VIAL (1 mg/ml) ONE (12:13)
[2022-05-27] MEDS ORDERED: niCARdipine 0.1MG/ML IVPREMIX 20 MG/200 ML BAG IV SCH (14:00)
[2022-05-27] MEDS ORDERED: Dextrose 50% Syringe 50 ml 25 GM/50 ML SYRINGE IV PUSH PRN (15:28)
[2022-05-27] MEDS ORDERED: Heparin 5000 UNITS/ML 1 mL VIAL ONE (16:25)
[2022-05-27 16:27] LABS: ABS Basophils 0.1 10^3/ul (0-0.2); ABS Lymphocytes 1.1 10^3/ul (1.0-4.8); ABS Monocytes 0.5 10^3/ul (0-0.8); ABS Neutrophils 7.4 10^3/ul (1.5-7.7); Eosinophil % 0.1 %; Hematocrit 42 % (35-47); Hemoglobin 13.8 g/dL (12.0-16.0); Lymphocyte % 11.8 %; Mean Corpuscular HGB Conc 33 g/dL (31-36); Mean Corpuscular Hemoglobin 28 pg (27-31); Mean Corpuscular Volume 85 fL (80-97); Mean Platelet Volume 7.9 fL (7.4-10.4); Platelet Count 373 10^3/uL (150-450); Red Blood Count 4.93 10^6 /uL (3.70-4.87); Red Cell Distribution Width 15 % (10-15)
[2022-05-27] MEDS: Acetaminophen IV 1 GM/100ML 1,000 MG/100 ML BAG IV PRN (16:31)
[2022-05-27] MEDS: Heparin DRIP 25,000 UNITS BAG 25,000 UNITS/500 ML BAG IV SCH (16:33)
[2022-05-27] MEDS: Heparin 5000 UNITS/ML 1 mL VIAL IV SCH (16:35)
[2022-05-27 16:59] LABS: eGFR CKD-EPI 113.5 (>60)
[2022-05-28] MEDS: Acetaminophen IV 1 GM/100ML 1,000 MG/100 ML BAG IV PRN ×2 (04:01→20:30)
[2022-05-28 04:37] LABS: Activated Partial Thrombo Time 55.8 seconds (26.0-38.0)
[2022-05-28 05:21] LABS: ABS Lymphocytes 0.9 10^3/ul (1.0-4.8); ABS Monocytes 0.4 10^3/ul (0-0.8); ABS Neutrophils 4.6 10^3/ul (1.5-7.7); Eosinophil % 0.8 %; Hematocrit 37 % (35-47); Hemoglobin 12.2 g/dL (12.0-16.0); Lymphocyte % 14.7 %; Mean Corpuscular HGB Conc 33 g/dL (31-36); Mean Corpuscular Hemoglobin 28 pg (27-31); Mean Corpuscular Volume 84 fL (80-97); Mean Platelet Volume 7.8 fL (7.4-10.4); Platelet Count 300 10^3/uL (150-450); Red Blood Count 4.42 10^6 /uL (3.70-4.87); Red Cell Distribution Width 15 % (10-15)
[2022-05-28 05:52] LABS: Calcium 9.6 mg/dL (8.6-10.3); Potassium 3.5 mmol/L (3.5-5.0); eGFR CKD-EPI 115.4 (>60)
[2022-05-28 07:40] LABS: INR 1.36 (0.89-1.11)
[2022-05-28] MEDS ORDERED: fentaNYL 100 mcg/2 ml 50 MCG/ML VIAL ONE (11:29)
[2022-05-28] MEDS ORDERED: Potassium Chlor 20 meq TAB.ER PO ONE (18:04)
[2022-05-28] MEDS ORDERED: hydrALAZINE 20 mg/ml 1 ML Vial IV IV SLOW PU ONE (18:06)
[2022-05-28] MEDS ORDERED: Metoprolol Tartrate 5 mg VIAL 5 ml VIAL (1 mg/ml) IV ONE (21:08)
[2022-05-28] MEDS: Heparin 5000 UNITS/ML 1 mL VIAL IV SCH (21:27)
[2022-05-28] MEDS: Heparin DRIP 25,000 UNITS BAG 25,000 UNITS/500 ML BAG IV SCH (21:32)
[2022-05-29 03:43] LABS: ABS Eosinophils 0.1 10^3/ul (0-0.6); ABS Lymphocytes 0.7 10^3/ul (1.0-4.8); ABS Monocytes 0.5 10^3/ul (0-0.8); ABS Neutrophils 4.5 10^3/ul (1.5-7.7); Eosinophil % 1.2 %; Hematocrit 37 % (35-47); Hemoglobin 12.1 g/dL (12.0-16.0); Lymphocyte % 12.9 %; Mean Corpuscular HGB Conc 33 g/dL (31-36); Mean Corpuscular Hemoglobin 27 pg (27-31); Mean Corpuscular Volume 84 fL (80-97); Platelet Count 302 10^3/uL (150-450); Red Blood Count 4.42 10^6 /uL (3.70-4.87); Red Cell Distribution Width 15 % (10-15); White Blood Count 5.8 10^3/uL (3.5-10.8)
[2022-05-29 04:07] LABS: Calcium 9.6 mg/dL (8.6-10.3); Potassium 3.8 mmol/L (3.5-5.0); eGFR CKD-EPI 108.2 (>60)
[2022-05-29] MEDS ORDERED: Potassium Chlor 20 meq TAB.ER PO ONE (05:40)
[2022-05-29 10:38] LABS: TSH Ultra Thyroid Stim Horm 6.35 mcIU/mL (0.34-5.60)
[2022-05-29] MEDS: Enoxaparin 80 MG/0.8 ML SYR SUBCUT SCH ×2 (11:47→21:32)
[2022-05-29] MEDS ORDERED: Metoprolol Tartrate 5 mg VIAL 5 ml VIAL (1 mg/ml) IV PRN (23:20)
[2022-05-30 05:52] LABS: ABS Basophils 0.1 10^3/ul (0-0.2); ABS Lymphocytes 0.7 10^3/ul (1.0-4.8); ABS Monocytes 0.5 10^3/ul (0-0.8); ABS Neutrophils 4.9 10^3/ul (1.5-7.7); Eosinophil % 0.8 %; Hematocrit 35 % (35-47); Hemoglobin 11.4 g/dL (12.0-16.0); Lymphocyte % 11.8 %; Mean Corpuscular HGB Conc 33 g/dL (31-36); Mean Corpuscular Hemoglobin 28 pg (27-31); Mean Corpuscular Volume 84 fL (80-97); Platelet Count 271 10^3/uL (150-450); Red Blood Count 4.15 10^6 /uL (3.70-4.87); Red Cell Distribution Width 15 % (10-15); White Blood Count 6.2 10^3/uL (3.5-10.8)
[2022-05-30 06:47] LABS: Calcium 9.4 mg/dL (8.6-10.3); Magnesium 1.6 mg/dL (1.9-2.7); Potassium 4.1 mmol/L (3.5-5.0); eGFR CKD-EPI 108.7 (>60)
[2022-05-30] MEDS ORDERED: Magnesium Sulfate IV 3 GM in NS 0.9% 100 ml BAG 100 ML IVPB ONE (06:52)
[2022-05-30 10:57] VITALS: BP 132/88
== END 2022-05-30 12:00 | disposition home or self-care (01) | DRG 952 ==
LOC: ED 07:43 → EDHOLD 15:17 → ICU 16:21
PROVIDERS: ADMIT Internal Medicine; ATTEND Internal Medicine

== ENCOUNTER 2023-05-15 01:28 | Inpatient (IN) ==
[2023-05-15] MEDS ORDERED: PROTHROMBIN COMPLEX CONCENTRATE IV SLOW PU ONE (01:55)
[2023-05-15] MEDS ORDERED: [UNRECOGNIZED DRUG - OTHER] IV SLOW PU ONE (01:55)
[2023-05-15 01:59] LABS: ABS Lymphocytes 0.9 10^3/uL (1.0-4.8); ABS Monocytes 0.7 10^3/uL (0.0-0.9); ABS Neutrophils 2.5 10^3/uL (1.5-7.6); Eosinophil % 0.7 %; Hematocrit 26.4 % (35-45); Hemoglobin 9.2 g/dL (11.5-14.3); Lymphocyte % 22.3 %; Mean Corpuscular Hemoglobin 32.6 pg (27-33); Mean Corpuscular Hgb Conc 34.7 g/dL (31-36); Mean Corpuscular Volume 93.8 fL (80-97); Mean Platelet Volume 8.2 fL (7.5-11.2); Nucleated Red Blood Cells % 0.1 /100 WBC (0.0-0.4); Platelet Count 121 10^3/uL (150-450); Red Blood Count 2.82 10^6/uL (3.63-4.92); White Blood Count 4.1 10^3/uL (3.8-11.8)
[2023-05-15 02:07] LABS: INR 1.89 (0.83-1.13)
[2023-05-15 02:16] LABS: Albumin 4.3 g/dL (3.2-5.2); Albumin/Globulin Ratio 1.4 (1-3); Calcium 9.3 mg/dL (8.6-10.3); Creatinine, Serum 0.7 mg/dL (0.51-0.95); Globulin 3.1 g/dL (2-4); Potassium 3.8 mmol/L (3.5-5.0); Total Bilirubin 0.4 mg/dL (0.2-1.0); Total Protein 7.4 g/dL (6.4-8.9); eGFR CKD-EPI 101.4 (>60)
[2023-05-15] MEDS ORDERED: Tranexamic Acid 1,000 MG/10 ML SDV INH ONE (02:24)
[2023-05-15] MEDS ORDERED: Iodixanol (CONTRAST) 320 MG/ML 100 ML SDV IV ONE (02:25)
[2023-05-15 03:23] LABS: High Sensitivity Troponin 1 Hr 3 pg/mL (<15)
[2023-05-15] MEDS ORDERED: Ondansetron 4 mg VIAL 2 MG/ML 2 ml VIAL IV PRN (04:32)
[2023-05-15 23:15] LABS: ABS Lymphocytes 0.8 10^3/uL (1.0-4.8); ABS Monocytes 0.5 10^3/uL (0.0-0.9); ABS Neutrophils 1.4 10^3/uL (1.5-7.6); Hematocrit 23.6 % (35-45); Hemoglobin 8.2 g/dL (11.5-14.3); Lymphocyte % 29.1 %; Mean Corpuscular Hemoglobin 32.6 pg (27-33); Mean Corpuscular Hgb Conc 34.8 g/dL (31-36); Mean Corpuscular Volume 93.7 fL (80-97); Mean Platelet Volume 8.2 fL (7.5-11.2); Nucleated Red Blood Cells % 0.1 /100 WBC (0.0-0.4); Platelet Count 120 10^3/uL (150-450); Red Blood Count 2.52 10^6/uL (3.63-4.92); Red Cell Distribution Width 20.9 % (12-17); White Blood Count 2.7 10^3/uL (3.8-11.8)
[2023-05-16 05:42] LABS: ABS Lymphocytes 0.7 10^3/uL (1.0-4.8); ABS Monocytes 0.4 10^3/uL (0.0-0.9); ABS Neutrophils 1.1 10^3/uL (1.5-7.6); ABS Nucleated RBC 0.01 10^3/ul; Hematocrit 23.6 % (35-45); Hemoglobin 8.1 g/dL (11.5-14.3); Lymphocyte % 29.3 %; Mean Corpuscular Hgb Conc 34.1 g/dL (31-36); Mean Corpuscular Volume 93.9 fL (80-97); Mean Platelet Volume 7.8 fL (7.5-11.2); Nucleated Red Blood Cells % 0.3 /100 WBC (0.0-0.4); Platelet Count 117 10^3/uL (150-450); Red Blood Count 2.52 10^6/uL (3.63-4.92); Red Cell Distribution Width 21.1 % (12-17); White Blood Count 2.2 10^3/uL (3.8-11.8)
[2023-05-16 06:01] LABS: Calcium 8.7 mg/dL (8.6-10.3); Creatinine, Serum 0.52 mg/dL (0.51-0.95); Magnesium 1.4 mg/dL (1.9-2.7); Potassium 3.9 mmol/L (3.5-5.0)
[2023-05-16] MEDS ORDERED: Magnesium Sulfate 2 gm BAG 2 GM/50 ML BAG IVPB ONE (07:55)
[2023-05-17] MEDS ORDERED: Benzocaine (plain) Lozenge 15 MG MT PRN (01:12)
[2023-05-17 05:50] LABS: ABS Lymphocytes 0.7 10^3/uL (1.0-4.8); ABS Monocytes 0.4 10^3/uL (0.0-0.9); ABS Neutrophils 1.2 10^3/uL (1.5-7.6); ABS Nucleated RBC 0.01 10^3/ul; Eosinophil % 1.2 %; Hematocrit 21.9 % (35-45); Hemoglobin 7.6 g/dL (11.5-14.3); Mean Corpuscular Hemoglobin 32.4 pg (27-33); Mean Corpuscular Hgb Conc 34.6 g/dL (31-36); Mean Corpuscular Volume 93.7 fL (80-97); Mean Platelet Volume 7.9 fL (7.5-11.2); Nucleated Red Blood Cells % 0.3 /100 WBC (0.0-0.4); Platelet Count 119 10^3/uL (150-450); Red Blood Count 2.34 10^6/uL (3.63-4.92); Red Cell Distribution Width 21.2 % (12-17); White Blood Count 2.4 10^3/uL (3.8-11.8)
[2023-05-17 06:07] LABS: Calcium 8.8 mg/dL (8.6-10.3); Creatinine, Serum 0.52 mg/dL (0.51-0.95); Potassium 3.9 mmol/L (3.5-5.0)
[2023-05-17 07:27] LABS: Magnesium 1.6 mg/dL (1.9-2.7)
[2023-05-17] MEDS ORDERED: Magnesium Sulf 4 GM/100 ML IV 4,000 MG/100 ML BAG IVPB ONE (07:36)
[2023-05-17 15:25] VITALS: BP 130/83
== END 2023-05-17 16:00 | disposition home or self-care (01) | DRG 144 ==
LOC: EDHOLD 01:28 → ED 01:28 → SUATTDRO 04:32 → MED 13:42
PROVIDERS: ADMIT Student in an Organized Health Care Education/Training Program; ATTEND Internal Medicine

== ENCOUNTER 2024-02-17 11:14 | Inpatient (IN) ==
[2024-02-17] MEDS: Lactated Ringers 1000 ml BAG 1,000 ML IV ONE ×2 (13:25→15:13)
[2024-02-17] MEDS: Ondansetron 4 mg VIAL 2 MG/ML 2 ml VIAL IV ONE ×2 (13:25→15:28)
[2024-02-17 13:44] LABS: Activated Partial Thrombo Time 34.5 seconds (26.0-38.0); INR 1.43 (0.83-1.13)
[2024-02-17 13:46] LABS: ABS Basophils 0.1 10^3/uL (0.0-0.1); ABS Lymphocytes 0.5 10^3/uL (1.0-4.8); ABS Monocytes 0.2 10^3/uL (0.0-0.9); ABS Neutrophils 6.6 10^3/uL (1.5-7.6); ABS Nucleated RBC 0.01 10^3/ul; Eosinophil % 0.1 %; Hematocrit 28.7 % (35-45); Hemoglobin 9.1 g/dL (11.5-14.3); Lymphocyte % 6.5 %; Mean Corpuscular Hgb Conc 31.7 g/dL (31-36); Mean Corpuscular Volume 81.9 fL (80-97); Mean Platelet Volume 7.7 fL (7.5-11.2); Nucleated Red Blood Cells % 0.1 %/100WBC (0.0-0.8); Platelet Count 301 10^3/uL (150-450); Red Cell Distribution Width 21.8 % (12-17); White Blood Count 7.3 10^3/uL (3.8-11.8)
[2024-02-17 13:55] LABS: Albumin/Globulin Ratio 1.5 (1-3); C Reactive Protein 13.47 mg/L (<8.01); Calcium 9.2 mg/dL (8.6-10.3); Creatinine, Serum 0.35 mg/dL (0.51-0.95); Globulin 2.7 g/dL (2-4); Magnesium 1.5 mg/dL (1.9-2.7); Potassium 3.9 mmol/L (3.5-5.0); Total Bilirubin 0.3 mg/dL (0.2-1.0); Total Protein 6.7 g/dL (6.4-8.9); eGFR CKD-EPI 119.1 (>60)
[2024-02-17 14:44] LABS: Urine Appearance Clear; Urine Bilirubin Negative (Negative); Urine Blood Negative (Negative); Urine Color Colorless; Urine Glucose Negative (Negative); Urine Ketones Negative (Negative); Urine Nitrite Negative (Negative); Urine Protein Negative (Negative); Urine Specific Gravity 1.012 (1.002-1.030); Urine Urobilinogen Negative (Negative); Urine pH 6.5 (5.0-8.0)
[2024-02-17] MEDS: Iodixanol (CONTRAST) 320 MG/ML 100 ML SDV IV ONE ×2 (15:01→18:03)
[2024-02-17] MEDS: Magnesium Sulfate 2 gm BAG 2 GM/50 ML BAG IVPB ONE (15:13)
[2024-02-17] MEDS: Morphine 2 MG/ML SYRINGE IV ONE ×2 (15:28→20:14)
[2024-02-17 17:28] LABS: High Sensitivity Troponin 1 Hr 5 pg/mL (<15)
[2024-02-17] MEDS: cefTRIAXone 1 gm/50 mL D5W 1 GM/50 ML BAG IV ONE (20:14)
[2024-02-17] MEDS: Azithromycin 500 mg/250 ml NS 500 MG/250 ML BAG IVPB ONE (20:55)
[2024-02-17] MEDS ORDERED: Dextrose 50% Syringe 50 ml 25 GM/50 ML SYRINGE IV PUSH PRN (21:41)
[2024-02-17] MEDS: Enoxaparin 40 MG/0.4 ML SYR SUBCUT SCH (23:21)
[2024-02-18 06:00] LABS: Hematocrit 27.3 % (35-45); Hemoglobin 8.6 g/dL (11.5-14.3); Mean Corpuscular Hemoglobin 25.8 pg (27-33); Mean Corpuscular Hgb Conc 31.6 g/dL (31-36); Mean Corpuscular Volume 81.6 fL (80-97); Mean Platelet Volume 7.8 fL (7.5-11.2); Platelet Count 258 10^3/uL (150-450); Red Blood Count 3.35 10^6/uL (3.63-4.92); Red Cell Distribution Width 22.2 % (12-17); White Blood Count 27.9 10^3/uL (3.8-11.8)
[2024-02-18] MEDS: Ondansetron 4 mg VIAL 2 MG/ML 2 ml VIAL IV PRN (06:27)
[2024-02-18] MEDS: Morphine 4 MG/ML VIAL (1 ml) IV PRN (06:27)
[2024-02-18 06:55] LABS: C Reactive Protein 7.88 mg/L (<8.01); Calcium 8.8 mg/dL (8.6-10.3); Creatinine, Serum 0.38 mg/dL (0.51-0.95); Potassium 3.7 mmol/L (3.5-5.0); eGFR CKD-EPI 116.8 (>60)
[2024-02-18] MEDS ORDERED: Zosyn per Pharmacy NOTE FOLLOW UP SCH ×2 (07:00)
[2024-02-18] MEDS ORDERED: Cefepime 2 GM in Dextrose 2 GM/50 ML BAG IV SCH (07:00)
[2024-02-18 07:03] LABS: Magnesium 1.8 mg/dL (1.9-2.7)
[2024-02-18] MEDS: ZOSYN 3.375 GM x ONE DOSE over 30 miuntes IV (08:11)
[2024-02-18] MEDS: Potassium Chlor 20 meq TAB.ER PO SCH (08:54)
[2024-02-18 09:07] LABS: ABS Basophils 0.1 10^3/uL (0.0-0.1); ABS Lymphocytes 0.4 10^3/uL (1.0-4.8); ABS Monocytes 0.2 10^3/uL (0.0-0.9); ABS Neutrophils 27.2 10^3/uL (1.5-7.6); Anisocytosis 2+; Lymphocyte % 1.4 %; Polychromasia 1+; Tear Drop Cells 1+
[2024-02-18] MEDS: ZOSYN 3.375 GM Q8H per EXTENDED INFUSION IV SCH (12:29)
[2024-02-18] MEDS ORDERED: Bismuth Subsalicylate (BTL) 525 MG/30 ML (BULK BTL) PO PRN (12:52)
[2024-02-18] MEDS ORDERED: Sulfur Hexaflouride MICROSPHR 25 MG VIAL ONE (13:44)
[2024-02-18] MEDS: Metoprolol Tartrate 5 mg VIAL 5 ml VIAL (1 mg/ml) IV ONE (13:53)
[2024-02-18] MEDS ORDERED: cefTRIAXone 1 gm/50 mL D5W 1 GM/50 ML BAG IV SCH (20:00)
[2024-02-19 06:05] LABS: ABS Basophils 0.1 10^3/uL (0.0-0.1); ABS Lymphocytes 0.9 10^3/uL (1.0-4.8); ABS Monocytes 0.1 10^3/uL (0.0-0.9); ABS Neutrophils 13.7 10^3/uL (1.5-7.6); Eosinophil % 0.1 %; Hematocrit 25.4 % (35-45); Hemoglobin 7.9 g/dL (11.5-14.3); Lymphocyte % 5.8 %; Mean Corpuscular Hemoglobin 25.8 pg (27-33); Mean Corpuscular Hgb Conc 31.2 g/dL (31-36); Mean Corpuscular Volume 82.8 fL (80-97); Mean Platelet Volume 8.1 fL (7.5-11.2); Platelet Count 165 10^3/uL (150-450); Red Blood Count 3.07 10^6/uL (3.63-4.92); Red Cell Distribution Width 22.3 % (12-17); White Blood Count 14.8 10^3/uL (3.8-11.8)
[2024-02-19 07:35] LABS: Calcium 8.5 mg/dL (8.6-10.3); Creatinine, Serum 0.44 mg/dL (0.51-0.95); Magnesium 1.8 mg/dL (1.9-2.7); eGFR CKD-EPI 112.7 (>60)
[2024-02-19] MEDS: Magnesium Sulfate 2 gm BAG 2 GM/50 ML BAG IVPB ONE (09:41)
[2024-02-19 09:51] LABS: C Reactive Protein 10.54 mg/L (<8.01)
[2024-02-19 10:56] LABS: Erythrocyte Sed Rate 52 mm/Hr (0-29)
[2024-02-20 06:54] LABS: Hematocrit 21.4 % (35-45); Hemoglobin 6.9 g/dL (11.5-14.3); Mean Corpuscular Hemoglobin 26.9 pg (27-33); Mean Corpuscular Hgb Conc 32.2 g/dL (31-36); Mean Corpuscular Volume 83.6 fL (80-97); Red Blood Count 2.56 10^6/uL (3.63-4.92); Red Cell Distribution Width 19.8 % (12-17); White Blood Count 6.8 10^3/uL (3.8-11.8)
[2024-02-20 07:27] LABS: ABS Lymphocytes 0.5 10^3/uL (1.0-4.8); ABS Monocytes 0.3 10^3/uL (0.0-0.9); ABS Neutrophils 5.9 10^3/uL (1.5-7.6); Eosinophil % 0.6 %; Lymphocyte % 7.4 %; Mean Platelet Volume 7.7 fL (7.5-11.2); Nucleated Red Blood Cells % 0.1 %/100WBC (0.0-0.8); Platelet Count 98 10^3/uL (150-450)
[2024-02-20] MEDS ORDERED: Senna TAB 8.6 mg TAB PO PRN (08:11)
[2024-02-20] MEDS ORDERED: Polyethylene Glycol 3350 17 GM PACKET PO PRN (08:11)
[2024-02-20 15:04] LABS: Hematocrit 32.7 % (35-45); Hemoglobin 10.8 g/dL (11.5-14.3); Mean Platelet Volume 8.5 fL (7.5-11.2); Platelet Count 127 10^3/uL (150-450); Red Blood Count 3.84 10^6/uL (3.63-4.92); Red Cell Distribution Width 19.5 % (12-17)
[2024-02-20 15:28] LABS: ABS Lymphocytes 0.6 10^3/uL (1.0-4.8); ABS Monocytes 0.4 10^3/uL (0.0-0.9); ABS Neutrophils 5.9 10^3/uL (1.5-7.6); Eosinophil % 0.3 %; Lymphocyte % 9.2 %; Nucleated Red Blood Cells % 0.1 %/100WBC (0.0-0.8); RBC Morphology Normal (Normal)
[2024-02-20 15:31] LABS: Calcium 8.5 mg/dL (8.6-10.3); Creatinine, Serum 0.46 mg/dL (0.51-0.95); Potassium 4.1 mmol/L (3.5-5.0); eGFR CKD-EPI 111.5 (>60)
[2024-02-20 18:16] LABS: Urine Appearance Clear; Urine Bilirubin Negative (Negative); Urine Blood Negative (Negative); Urine Glucose Negative (Negative); Urine Ketones Negative (Negative); Urine Nitrite Negative (Negative); Urine Protein Trace (Negative); Urine Specific Gravity 1.032 (1.002-1.030); Urine Urobilinogen Negative (Negative)
[2024-02-20 18:21] LABS: Urine Color Yellow
[2024-02-21 05:31] LABS: Hematocrit 32.3 % (35-45); Hemoglobin 10.5 g/dL (11.5-14.3); Mean Corpuscular Hemoglobin 27.5 pg (27-33); Mean Corpuscular Hgb Conc 32.6 g/dL (31-36); Mean Corpuscular Volume 84.2 fL (80-97); Mean Platelet Volume 8.5 fL (7.5-11.2); Platelet Count 134 10^3/uL (150-450); Red Blood Count 3.83 10^6/uL (3.63-4.92); Red Cell Distribution Width 19.5 % (12-17); White Blood Count 2.9 10^3/uL (3.8-11.8)
[2024-02-21 06:16] LABS: Calcium 8.8 mg/dL (8.6-10.3); Creatinine, Serum 0.43 mg/dL (0.51-0.95); Magnesium 1.6 mg/dL (1.9-2.7); Potassium 4.3 mmol/L (3.5-5.0); eGFR CKD-EPI 113.4 (>60)
[2024-02-21 08:03] LABS: ABS Lymphocytes 0.4 10^3/ul (1.0-4.8); ABS Monocytes 0.4 10^3/ul (0.0-0.9); ABS Neutrophils 2.1 10^3/ul (1.5-7.6)
[2024-02-21 08:11] LABS: RBC Morphology Normal (Normal)
[2024-02-21] MEDS: Magnesium Sulfate 2 gm BAG 2 GM/50 ML BAG IVPB ONE (09:25)
[2024-02-21 09:34] VITALS: BP 103/79
[2024-02-21] MEDS ORDERED: Cefpodoxime 200 mg (NF) PO SCH (10:00)
== END 2024-02-21 13:07 | disposition home or self-care (01) | DRG 136 ==
LOC: ED 11:14 → EDHOLD 11:14 → MED 23:18 → SUATTDRO 02-19 10:00
PROVIDERS: ADMIT Student in an Organized Health Care Education/Training Program; ATTEND Internal Medicine